=== PATIENT | female | born 1965 | race Caucasian/White ===

== ENCOUNTER 2016-08-19 14:02 | Emergency (ER) | payer SELFPAY ==
[2016-08-19 14:09] VITALS: BP 143/67; BMI 39.2
[2016-08-19] MEDS ORDERED: NS 1000 ML 1,000 ML IV ONE (14:44)
[2016-08-19] MEDS ORDERED: ZOFRAN INJ 4 MG VIAL IVP ONE (14:45)
[2016-08-19] MEDS ORDERED: TORADOL 30 MG VIAL IVP STA (14:46)
--- NOTE | 2016-08-19 14:49 | DR.GENAD ---
HPI - PCP Primary Care Physician: wilbur mays - Complaint/Symptoms Chief Complaint Doctors Comments: Patient states she has been nauseated with epigastric pain that goes to her back with diarrhea for the past seven days. States she has had a low grade fever. States her had a virus earlier but he has gotten over it. She is a patient of Jacki Mays She denies hematuria , nocturia or xavier. States she has been dizzy and weak when she set up or stand. Chief Complaint:: patient stated she had a virus 5 days ago and since then she has been very weak and dizzy and having abd pain. - Nurses notes reviewed Nurses Notes Review: Yes - Source History Provided: Patient - Mode of Arrival Mode of Arrival: Ambulatory - Timing Onset of Chief Complaint: 08/13/16 Came on: Gradually - Duration Duration: Intermittent How lon Duration: Days - Location Location: diffuse abdominal pain - Modifying Factors Worsens:: standing Improves:: nothing PMH - PMH Past Medical History: Yes Past Medical History: GERD Past Surgical History: Yes Surgical History: Cholecystectomy, Hysterectomy - Family History History of Family Medical Conditions: Yes Family Medical History: Diabetes Mellitus, Cancer - Social History Does patient currently use any type of tobacco product: No Have you used tobacco products in the last 12 months: No Type of Tobacco Use: None Does any household member use tobacco: No Alcohol Use: None Do you use any recreational Drugs:: No Lives With: Family Lives Where: Home - infectious screening In the last 2 months have you had wt loss of >10#?: NO Have you had fever, night sweats or hemotysis?: No Have you traveled outside the country in the last 6 months?: No Isolation: Standard ROS - Review of Systems Constitutional: No Symptoms Reported, Malaise, Weakness, Loss of Appetite. negative: See HPI, Chills, Diaphoresis, Fever, Irritable, Fatigue, Other Eyes: No Symptoms Reported. negative: See HPI, Eye Pain, Blurred Vision, Tearing, Discharge, Photophobia, Diplopia, Other ENTM: No Symptoms Reported. negative: See HPI, Ear Pain, Ear Discharge, Pulling on Ears, Hearing Loss, Nose Pain, Nose Discharge, Epistaxis, Nose Congestion, Mouth Pain, Mouth Swelling, Loose Teeth, Drooling, Throat Pain, Throat Swelling, Ear Foreign Body Respiratoy: No Symptoms Reported. negative: See HPI, Productive Cough, Non- Productive Cough, Moist Cough, Dry Cough, Hacking Cough, Barking Cough, Brassy Cough, Orthopnea, Short of Breath, Stridor, Wheezing, Hemoptysis, Other Cardiovascular: No Symptoms Reported. negative: See HPI, Chest Pain, Edema, Palpitations, Syncope, Cyanosis, Skin Mottling, Other Gastrointestinal/Abdominal: No Symptoms Reported, Abdominal Pain, Diarrhea, Nausea, Vomiting Genitourinary: No Symptoms Reported. negative: See HPI, Discharge, Dysuria, Frequency, Hematuria, Pain, Bleeding, Other Neurological: No Symptoms Reported. negative: See HPI, Anxiety, Depressed, Emotional Problems, Headache, Numbness, Paresthesia, Pre-existing Deficit, Seizure, Tingling, Tremors, Weakness, Dizziness, Problems Walking, Speech Problem, Other Musculoskeletal: No Symptoms Reported. negative: See HPI, Back Pain, Gout, Joint Pain, Joint Swelling, Muscle Pain, Muscle Stiffness, Neck Pain, Right, Left, Neck, Chest wall, Rib(s), Back, Shoulder, Arm, Elbow, Forearm, Wrist, Hand , Pelvis, Hip, Leg, Knee, Ankle, Foot, Other Integumentary: No Symptoms Reported. negative: See HPI, Change in Color, Change in Hair/Nails, Dryness, Lesions, Lumps, Rash, Itching, Wound, Bruises, Juandice, Other Hematologic/Lymphatic: No Symptoms Reported. negative: See HPI, Anemia, Blood Clots, Easy Bleeding, Easy Bruising, Swollen Glands, Lymphadenopathy, Other Endocrine: No Symptoms Reported, Decreased Appetite. negative: See HPI, Excessive Sweating, Flushing, Intolerance to Cold, Intolerance to Heat, Increased Hunger, Increased Thirst, Increased Urine, Unexplained Weight Gain, Unexplained Weight Loss, Failure to Thrive, Other Psychiatric: No Symptoms Reported. negative: See HPI, Anxiety, Depression, Hallucinations, Excessive crying, Suicidal, Other PE - Vital Signs Vitals: Temperature 98.7 F Pulse Rate 62 Respiratory Rate 16 Blood Pressure [Right Arm] 145/77 Blood Pressure 143/67 O2 Sat by Pulse Oximetry 99 - General Limitations: No Limitations General Appearance: Alert, In Distress (moderate), Obese - Head Head Exam: Normal Inspection, Atraumatic, Normocephalic - Eyes Eye exam: Normal Appearance, PERRL, EOMI. negative: Scleral Icterus, Conjunctival Injection, Nystagmus, Miosis, Mydrasis, Periorbital Swelling, Periorbital Tenderness, Other - ENT ENT Exam: Normal Exam, Normal Oropharynx, Normal External Ear Exam, Mucous Membranes Moist, TM's Normal Bilaterally External Ear Exam: Normal External Inspection TM/Canal Exam: Bilateral Normal Nose Exam: Normal Nose Exam Mouth Exam: Normal Inspection Throat Exam: Normal Inspection - Neck Neck Exam: Normal Inspection, Full ROM, Trachea Midline. negative: Tenderness, Meningismus, Lymphadenopathy, Thyromegaly, Other - Chest Chest Inspection: Normal Inspection, Symmetric Chest Wall Rise - Respiratory Respiratory Exam: Normal Lung Sounds Bilat Respiratory Exam: Bilateral Clear to Auscultation - Cardiovascular Cardiovascular Exam: Regular Rate, Normal Rhythm, Normal Heart Sounds. negative : Bradycardia, Tachycardia, Irregular Rhythm, Systolic Murmur, Diastolic Murmur , Rubs, Gallop, Clicks, JVD, +S1, +S2, +S3, +S4, Other - Abdominal Exam Abdominal Exam: Normal Inspection, Normal Bowel Sounds, Soft Abdominal Tenderness: Epigastrium, Suprapubic, Moderate - Extremities Extremities Exam: Normal Inspection, Full ROM, Normal Capillary Refill. negative: Tenderness, Edema, Joint Swelling, Calf Tenderness, Other - Back Back Exam: Normal Inspection, Full ROM, Tenderness. negative: (R) CVA Tenderness, (L) CVA Tenderness, Muscle Spasm, Paraspinal Tenderness, Vertebral Tenderness, Rashes, (R) Sciatic Notch Tenderness, (L) Sciatic Notch Tendern, (R ) Straight Leg Raise, (L) Straight Leg Raise, Other - Neurologic Neurological Exam: Alert, Oriented X3, CN II-XII Intact, Normal Gait, Reflexes Normal - Psychiatric Psychiatric Exam: Normal Affect, Normal Mood - Skin Skin Exam: Warm, Dry, Intact, Normal Color ROR - Labs Reviewed Laboratory Results Reviewed?: Yes (All labs and x-ray results reviewed and discussed with patient and spouse) Result Diagrams: 08/19/16 15:40 08/19/16 15:40 Laboratory: WBC 7.1 X10^3/uL (3.6-10.0) 08/19/16 15:40 RBC 4.42 X10^6/uL (3.5-5.4) 08/19/16 15:40 Hgb 13.8 g/dL (12.0-16.0) 08/19/16 15:40 Hct 39.4 % (36.0-47.0) 08/19/16 15:40 MCV 89.3 fL (80.0-100.0) 08/19/16 15:40 MCH 31.1 pg (27.0-34.0) 08/19/16 15:40 MCHC 34.9 g/dL (33.0-35.0) 08/19/16 15:40 RDW 13.2 % (11.6-16.5) 08/19/16 15:40 Plt Count 230 X10^3/uL (150.0-450.0) 08/19/16 15:40 MPV 9.7 fL (7.4-11.0) 08/19/16 15:40 Neut % 60.3 % (42.0-75.0) 08/19/16 15:40 Lymph % 30.9 % (21.0-51.0) 08/19/16 15:40 Cloud % 7.4 % (0.0-13.0) 08/19/16 15:40 Eos % 0.6 % (0.9-2.9) L 08/19/16 15:40 Baso % 0.8 % (0.2-1.0) 08/19/16 15:40 Neut # 4.3 x10^3/uL (2.2-4.8) 08/19/16 15:40 Lymph # 2.2 X10^3/uL (1.3-2.9) 08/19/16 15:40 Cloud # 0.5 x10^3/uL (0.3-0.8) 08/19/16 15:40 Eos # 0.0 x10^3/uL (0.0-0.2) 08/19/16 15:40 Baso # 0.1 X10^3/uL (0.0-0.1) 08/19/16 15:40 Absolute Nucleated RBC 0.0 /100WBC 08/19/16 15:40 Sodium 144 mmol/L (136-145) 08/19/16 15:40 Corrected Sodium 145 mmol/L (136-145) 08/19/16 15:40 Potassium 3.4 mmol/L (3.5-5.1) L 08/19/16 15:40 Chloride 109 mmol/L (98-107) H 08/19/16 15:40 Carbon Dioxide 28.9 mmol/L (21-32) 08/19/16 15:40 BUN 8 mg/dL (7-18) 08/19/16 15:40 Creatinine 0.77 mg/dL (0.55-1.02) 08/19/16 15:40 Est GFR (MDRD) Af Amer > 60 (>60) 08/19/16 15:40 Est GFR (MDRD) Non-Af > 60 (>60) 08/19/16 15:40 Glucose 146 mg/dL (65-99) H 08/19/16 15:40 Calcium 7.7 mg/dL (8.5-10.1) L 08/19/16 15:40 Corrected Calcium 8.3 mg/dL (8.5-10.1) L 08/19/16 15:40 Total Bilirubin 0.40 mg/dL (0.2-1.0) 08/19/16 15:40 AST 38 Units/L (15-37) H 08/19/16 15:40 ALT 71 Units/L (12-78) 08/19/16 15:40 Alkaline Phosphatase 81 Units/L (46-116) 08/19/16 15:40 Total Protein 6.4 g/dL (6.4-8.2) 08/19/16 15:40 Albumin 3.3 g/dL (3.4-5.0) L 08/19/16 15:40 Globulin 3.1 g/dL (2.5-4.5) 08/19/16 15:40 Albumin/Globulin Ratio 1.1 Ratio (1.1-2.1) 08/19/16 15:40 Amylase 31 Units/L (25-115) 08/19/16 15:40 Lipase 152 Units/L (73-393) 08/19/16 15:40 HCG, Qual Negative <10 mIU/mL 08/19/16 15:40 Specimen Type Clean catch urine 08/19/16 16:00 Urine Color Yellow (YELLOW) 08/19/16 16:00 Urine Appearance Slightly hazy (CLEAR) 08/19/16 16:00 Urine pH 6.0 (5.0 - 8.0) 08/19/16 16:00 Ur Specific [place] 1.020 (1.000-1.030) 08/19/16 16:00 Urine Protein 1+ (NEGATIVE) 08/19/16 16:00 Urine Glucose (UA) 1+ (NEGATIVE) 08/19/16 16:00 Urine Ketones Negative (NEGATIVE) 08/19/16 16:00 Urine Occult Blood 2+ (NEGATIVE) 08/19/16 16:00 Urine Nitrite Negative (NEGATIVE) 08/19/16 16:00 Urine Bilirubin Negative (NEGATIVE) 08/19/16 16:00 Urine Urobilinogen Normal (NORMAL) 08/19/16 16:00 Ur Leukocyte Esterase 2+ (NEGATIVE) 08/19/16 16:00 Urine RBC 3-8 /HPF (NEGATIVE) 08/19/16 16:00 Urine WBC 6-10 /HPF (NEGATIVE) 08/19/16 16:00 Ur Squamous Epith Cells Many /HPF (NEGATIVE) 08/19/16 16:00 Urine Bacteria Trace /HPF (NEGATIVE) 08/19/16 16:00 Urine Mucus Few /HPF (NEGATIVE) 08/19/16 16:00 Ur Culture Indicated? Yes/culture set up 08/19/16 16:00 H. pylori IgG Antibody Positive (NEGATIVE) A 08/19/16 15:40 - Diagnosis Discharge Problem: Gastroenteritis, Helicobacter positive gastritis, Urinary tract infection, Hyperglycemia, Hypokalemia - Discharge Plan Disposition: HOME, SELF-CARE Condition: Stable Prescriptions: Lansoprazole/Amoxiciln/Clarith [PrevPac 14-day pack] 1 dose PO BID #1 pkg Ondansetron [Zofran Odt] 4 mg PO Q8H PRN #12 tab PRN Reason: Nausea/Vomiting - Follow ups/Referrals Follow ups/Referrals: AVA MAYS [Primary Care Provider] - 3 days - Instructions Instructions: Viral Gastroenteritis, Adult, Gastritis, Adult, Helicobacter Pylori Antibodies Test, Urinary Tract Infection, Hypokalemia
[2016-08-19] MEDS ORDERED: NS 1000 ML 1,000 ML ONE (14:51)
[2016-08-19] MEDS ORDERED: ZOFRAN INJ 4 MG VIAL ONE (14:51)
[2016-08-19] MEDS ORDERED: TORADOL 30 MG VIAL ONE (14:52)
[2016-08-19 15:06] LABS: BASOPHILS # (AUTO) 0.1 X10^3/uL (0.0-0.1); BASOPHILS % (AUTO) 0.8 % (0.2-1.0); EOSINOPHILS % (AUTO) 0.6 % (0.9-2.9); HEMATOCRIT 39.4 % (36.0-47.0); HEMOGLOBIN 13.8 g/dL (12.0-16.0); LYMPHOCYTES # (AUTO) 2.2 X10^3/uL (1.3-2.9); LYMPHOCYTES % (AUTO) 30.9 % (21.0-51.0); MEAN CORPUSCULAR HEMOGLOBIN 31.1 pg (27.0-34.0); MEAN CORPUSCULAR HGB CONC 34.9 g/dL (33.0-35.0); MEAN CORPUSCULAR VOLUME 89.3 fL (80.0-100.0); MEAN PLATELET VOLUME 9.7 fL (7.4-11.0); MONOCYTES # (AUTO) 0.5 x10^3/uL (0.3-0.8); MONOCYTES % (AUTO) 7.4 % (0.0-13.0); NEUTROPHILS # (AUTO) 4.3 x10^3/uL (2.2-4.8); NEUTROPHILS % (AUTO) 60.3 % (42.0-75.0); PLATELET COUNT 230 X10^3/uL (150.0-450.0); RED BLOOD COUNT 4.42 X10^6/uL (3.5-5.4); RED CELL DISTRIBUTION WIDTH 13.2 % (11.6-16.5); WHITE BLOOD COUNT 7.1 X10^3/uL (3.6-10.0)
[2016-08-19 16:08] LABS: ALANINE AMINOTRANSFERASE 71 Units/L (12-78); ALBUMIN 3.3 g/dL (3.4-5.0); ALKALINE PHOSPHATASE 81 Units/L (46-116); AMYLASE 31 Units/L (25-115); ASPARTATE AMINO TRANSFERASE 38 Units/L (15-37); BLOOD UREA NITROGEN 8 mg/dL (7-18); CALCIUM 7.7 mg/dL (8.5-10.1); CARBON DIOXIDE 28.9 mmol/L (21-32); CHLORIDE 109 mmol/L (98-107); COR CA(FOR HYPOALB) 8.3 mg/dL (8.5-10.1); COR NA(FOR HYPERGLY) 145 mmol/L (136-145); CREATININE 0.77 mg/dL (0.55-1.02); GLUCOSE 146 mg/dL (65-99); LIPASE 152 Units/L (73-393); SODIUM 144 mmol/L (136-145); TOTAL PROTEIN 6.4 g/dL (6.4-8.2); eGFR BLACK RACES > 60 (>60); eGFR NON BLACK RACES > 60 (>60)
[2016-08-19 16:12] LABS: BILIRUBIN,URINE NEGATIVE (NEGATIVE); BLOOD/HEMOGLOBIN,URINE 2+ (NEGATIVE); GLUCOSE, URINE 1+ (NEGATIVE); KETONES,URINE NEGATIVE (NEGATIVE); LEUKOCYTE ESTERASE ,URINE 2+ (NEGATIVE); NITRITES,URINE NEGATIVE (NEGATIVE); PROTEIN,URINE 1+ (NEGATIVE); UROBILINOGEN,URINE NORMAL (NORMAL)
[2016-08-19 16:30] LABS: APPEARANCE,URINE SLIGHTLY HAZY (CLEAR); BACTERIA,URINE TRACE /HPF (NEGATIVE); COLOR,URINE YELLOW (YELLOW); MUCUS,URINE FEW /HPF (NEGATIVE); SQUAMOUS EPITHELIAL CELL,UR MANY /HPF (NEGATIVE)
[2016-08-19 16:32] LABS: SERUM PREGNANCY TEST, QUAL NEGATIVE <10 mIU/mL
== END 2016-08-19 17:03 | disposition home or self-care (01) ==
LOC: ER 14:02
DX: K52.89 Other specified noninfective gastroenteritis and colitis (principal); N39.0 Urinary tract infection, site not specified; R73.9 Hyperglycemia, unspecified; E87.6 Hypokalemia; B95.1 Streptococcus, group B, as the cause of diseases classified elsewhere
CPT/HCPCS: 36415; 80053; 81001; 82150; 83690; 84703; 85025; 86677; 87086; 87088; 87186; 96365; 96367; 96374; 96375; 99283; A4216; A4222; J1885; J2405

== ENCOUNTER 2016-08-24 20:28 | Emergency (ER) | payer SELFPAY ==
[2016-08-24 20:36] VITALS: BP 189/96; BMI 36.8
--- NOTE | 2016-08-24 21:04 | DR.GENAD ---
HPI - PCP Primary Care Physician: TATIANA SOUSA - Complaint/Symptoms Chief Complaint Doctors Comments: nausea and vomiting after tabing prepack for five days. Chief Complaint:: ABD PAIN NVD BHATIA, DIZZINESS, WAS SEEN HERE SAT DX WITH H PYLORI Self Treatment fo Chief Complaint: PREV RAJENDRA ZOFRAN - Nurses notes reviewed Nurses Notes Review: Yes - Source History Provided: Patient - Mode of Arrival Mode of Arrival: Ambulatory - Timing Onset of Chief Complaint: 08/12/16 Came on: Gradually - Duration Duration: Intermittent Duration: Days - Severity Severity: Mild, Moderate PMH - PMH Past Medical History: Yes Past Medical History: Diabetes, GERD Past Surgical History: Yes Surgical History: Cholecystectomy, Hysterectomy - Family History History of Family Medical Conditions: Yes Family Medical History: Diabetes Mellitus, Cancer - Social History Does patient currently use any type of tobacco product: No Have you used tobacco products in the last 12 months: No Type of Tobacco Use: None Does any household member use tobacco: No Alcohol Use: None Do you use any recreational Drugs:: No Lives With: Family Lives Where: Home - infectious screening In the last 2 months have you had wt loss of >10#?: NO Have you had fever, night sweats or hemotysis?: No Have you traveled outside the country in the last 6 months?: No Isolation: Standard ROS - Review of Systems Cardiovascular: No Symptoms Reported Gastrointestinal/Abdominal: Nausea, Vomiting Genitourinary: No Symptoms Reported Neurological: No Symptoms Reported Musculoskeletal: No Symptoms Reported Hematologic/Lymphatic: No Symptoms Reported Endocrine: No Symptoms Reported PE - Vital Signs Vitals: Temperature 98.3 F Pulse Rate 60 Respiratory Rate 18 Blood Pressure [Right Arm] 145/77 Blood Pressure 189/96 O2 Sat by Pulse Oximetry 97 - General Limitations: No Limitations General Appearance: In No Apparent Distress - Head Head Exam: Normal Inspection - Eyes Eye exam: Normal Appearance - Neck Neck Exam: Normal Inspection, Full ROM, Trachea Midline - Chest Chest Inspection: Normal Inspection, Symmetric Chest Wall Rise - Respiratory Respiratory Exam: Normal Lung Sounds Bilat Respiratory Exam: Bilateral Clear to Auscultation - Cardiovascular Cardiovascular Exam: Regular Rate, Normal Rhythm, Normal Heart Sounds - Abdominal Exam Abdominal Exam: Normal Bowel Sounds, Soft, Tenderness, Hyperactive Bowel Sounds Abdominal Tenderness: Epigastrium - Extremities Extremities Exam: Normal Inspection - Back Back Exam: Normal Inspection - Neurologic Neurological Exam: Alert, Oriented X3, CN II-XII Intact - Psychiatric Psychiatric Exam: Normal Affect, Normal Mood - Diagnosis Discharge Problem: Drug side effects, Nausea & vomiting - Discharge Plan Condition: Stable - Follow ups/Referrals Follow ups/Referrals: AVA SOUSA [Primary Care Provider] - 3 days - Instructions
[2016-08-24] MEDS ORDERED: REGLAN INJ 10 MG VIAL ONE (21:09)
[2016-08-24] MEDS ORDERED: BENADRYL INJ 50 MG VIAL ONE (21:09)
[2016-08-24] MEDS ORDERED: BENADRYL INJ 50 MG VIAL IVP ONE (21:09)
[2016-08-24] MEDS ORDERED: NS 500 ML IV 500 ML IV ONE ×2 (21:09→21:25)
[2016-08-24] MEDS ORDERED: REGLAN INJ 10 MG VIAL IVP ONE (21:10)
[2016-08-24] MEDS ORDERED: CARAFATE SUSP 1 GM/10 ML PO ONE (21:17)
== END 2016-08-24 22:18 | disposition home or self-care (01) ==
LOC: ER 20:40
DX: R11.2 Nausea with vomiting, unspecified (principal); T50.995A Adverse effect of other drugs, medicaments and biological substances, initial encounter
CPT/HCPCS: 96365; 96374; 96375; 99283; A4222; J1200; J2765

== ENCOUNTER 2017-05-26 16:01 | Emergency (ER) | payer SELFPAY ==
[2017-05-26 16:07] VITALS: BMI 33.6
[2017-05-26] MEDS ORDERED: ASPIRIN PO ONE (18:53)
[2017-05-26] MEDS ORDERED: TORADOL 30 MG VIAL IVP STA (18:54)
[2017-05-26] MEDS ORDERED: ZOFRAN INJ 4 MG VIAL IVP ONE (18:54)
--- NOTE | 2017-05-26 18:58 | DR.GENAD ---
HPI - PCP Primary Care Physician: MERRY - Complaint/Symptoms Chief Complaint Doctors Comments: Patient states her glucose was up to 589 last night and she got it down to 200 range but she has been having a diffuse headache with xiphoid pain like pressure or a weight in the center of her chest for the past 6-7 hours with nausea but no vomiting, fever, chills, cold or cough. States she has had a cath before that was normal years ago. She denies tobacoo or alcohol usage. states she is a patient of Jacki Johnston. She denies any recent trauma. Chief Complaint:: " I HAVE BEEN HAVING A HEADACHE, MY BP IS HGH AND MY BLOOD SUGAR IS HIGH" Self Treatment fo Chief Complaint: NONE - Nurses notes reviewed Nurses Notes Review: Yes - Source History Provided: Patient - Mode of Arrival Mode of Arrival: Ambulatory - Timing Onset of Chief Complaint: 05/25/17 Came on: Gradually - Duration Duration: Constant How lon Duration: Hours - Location Location: diffuse headache with xiphoid chest pain - Severity Severity: Severe - Modifying Factors Worsens:: nothing Improves:: nothing PMH - PMH Past Medical History: Yes Past Medical History: Diabetes, Migraines, GERD, Hypertension Past Surgical History: Yes Surgical History: Cholecystectomy, Hysterectomy - Family History History of Family Medical Conditions: Yes Family Medical History: Diabetes Mellitus, Hypertension - Social History Does patient currently use any type of tobacco product: No Have you used tobacco products in the last 12 months: No Type of Tobacco Use: None Does any household member use tobacco: No Alcohol Use: None Do you use any recreational Drugs:: No Lives With: Family Lives Where: Home - infectious screening In the last 2 months have you had wt loss of >10#?: NO Have you had fever, night sweats or hemotysis?: No Have you traveled outside the country in the last 6 months?: No Isolation: Standard ROS - Review of Systems Constitutional: No Symptoms Reported Eyes: No Symptoms Reported, Blurred Vision ENTM: No Symptoms Reported Respiratoy: No Symptoms Reported Cardiovascular: No Symptoms Reported, Chest Pain Gastrointestinal/Abdominal: No Symptoms Reported, Nausea. negative: See HPI, Abdominal Pain, Constipation, Diarrhea, Vomiting, Food Intolerance, Other Genitourinary: No Symptoms Reported. negative: See HPI, Discharge, Dysuria, Frequency, Hematuria, Pain, Bleeding, Other Neurological: No Symptoms Reported, Headache, Paresthesia Musculoskeletal: No Symptoms Reported Integumentary: No Symptoms Reported. negative: See HPI, Change in Color, Change in Hair/Nails, Dryness, Lesions, Lumps, Rash, Itching, Wound, Bruises, Juandice, Other Hematologic/Lymphatic: No Symptoms Reported Endocrine: No Symptoms Reported Psychiatric: No Symptoms Reported PE - Vital Signs Vitals: Temperature 98.1 F Pulse Rate [Left Brachial] 62 Pulse Rate 68 Respiratory Rate 18 Blood Pressure [Right Arm] 149/72 Blood Pressure 142/73 O2 Sat by Pulse Oximetry 97 - General Limitations: No Limitations General Appearance: Alert, In Distress (moderate) - Head Head Exam: Normal Inspection, Atraumatic, Normocephalic - Eyes Eye exam: Normal Appearance, PERRL, EOMI. negative: Scleral Icterus, Conjunctival Injection, Nystagmus, Miosis, Mydrasis, Periorbital Swelling, Periorbital Tenderness, Other - ENT ENT Exam: Normal Exam, Normal Oropharynx, Normal External Ear Exam, Mucous Membranes Moist, TM's Normal Bilaterally External Ear Exam: Normal External Inspection TM/Canal Exam: Bilateral Normal Nose Exam: Normal Nose Exam Mouth Exam: Normal Inspection Throat Exam: Normal Inspection - Neck Neck Exam: Normal Inspection, Full ROM, Trachea Midline. negative: Tenderness, Meningismus, Lymphadenopathy, Thyromegaly, Other - Chest Chest Inspection: Normal Inspection, Symmetric Chest Wall Rise - Respiratory Respiratory Exam: Normal Lung Sounds Bilat Respiratory Exam: Bilateral Clear to Auscultation - Cardiovascular Cardiovascular Exam: Regular Rate, Normal Rhythm, Normal Heart Sounds. negative : Bradycardia, Tachycardia, Irregular Rhythm, Systolic Murmur, Diastolic Murmur , Rubs, Gallop, Clicks, JVD, +S1, +S2, +S3, +S4, Other - Abdominal Exam Abdominal Exam: Normal Inspection, Normal Bowel Sounds, Soft Abdominal Tenderness: negative: RUQ, RLQ, LUQ, LLQ, Epigastrium, Suprapubic, Diffuse, Mild, Moderate, Severe, Other - Extremities Extremities Exam: Normal Inspection, Full ROM, Normal Capillary Refill. negative: Tenderness, Edema, Joint Swelling, Calf Tenderness, Other - Back Back Exam: Normal Inspection, Full ROM - Neurologic Neurological Exam: Alert, Oriented X3, CN II-XII Intact, Normal Gait, Reflexes Normal - Psychiatric Psychiatric Exam: Normal Affect, Normal Mood - Skin Skin Exam: Warm, Dry, Intact, Normal Color ROR - Labs Reviewed Laboratory Results Reviewed?: Yes (All labs and x-ray results reviewed and discussed with patient) Result Diagrams: 05/26/17 19:15 05/26/17 19:15 Laboratory: WBC 8.4 X10^3/uL (3.6-10.0) 05/26/17 19:15 RBC 5.15 X10^6/uL (3.5-5.4) 05/26/17 19:15 Hgb 16.1 g/dL (12.0-16.0) H 05/26/17 19:15 Hct 46.0 % (36.0-47.0) 05/26/17 19:15 MCV 89.3 fL (80.0-100.0) 05/26/17 19:15 MCH 31.3 pg (27.0-34.0) 05/26/17 19:15 MCHC 35.1 g/dL (33.0-35.0) H 05/26/17 19:15 RDW 12.6 % (11.6-16.5) 05/26/17 19:15 Plt Count 230 X10^3/uL (150.0-450.0) 05/26/17 19:15 MPV 9.5 fL (7.4-11.0) 05/26/17 19:15 Neut % (Auto) 76.4 % (42.0-75.0) H 05/26/17 19:15 Lymph % (Auto) 19.2 % (21.0-51.0) L 05/26/17 19:15 [place] % (Auto) 3.6 % (0.0-13.0) 05/26/17 19:15 Eos % (Auto) 0.1 % (0.9-2.9) L 05/26/17 19:15 Baso % (Auto) 0.7 % (0.2-1.0) 05/26/17 19:15 Neut # (Auto) 6.4 x10^3/uL (2.2-4.8) H 05/26/17 19:15 Lymph # (Auto) 1.6 X10^3/uL (1.3-2.9) 05/26/17 19:15 [place] # (Auto) 0.3 x10^3/uL (0.3-0.8) 05/26/17 19:15 Eos # (Auto) 0.0 x10^3/uL (0.0-0.2) 05/26/17 19:15 Baso # (Auto) 0.1 X10^3/uL (0.0-0.1) 05/26/17 19:15 Absolute Nucleated RBC 0.0 /100WBC 05/26/17 19:15 INR Target Range - 05/26/17 19:15 INR 1.04 (0.8-1.3) 05/26/17 19:15 APTT 22.4 SECONDS (22.9-36.5) L 05/26/17 19:15 PTT Comment - 05/26/17 19:15 Sodium 139 mmol/L (136-145) 05/26/17 19:15 Corrected Sodium 143 mmol/L (136-145) 05/26/17 19:15 Potassium 3.8 mmol/L (3.5-5.1) 05/26/17 19:15 Chloride 102 mmol/L (98-107) 05/26/17 19:15 Carbon Dioxide 27.6 mmol/L (21-32) 05/26/17 19:15 BUN 9 mg/dL (7-18) 05/26/17 19:15 Creatinine 0.79 mg/dL (0.55-1.02) 05/26/17 19:15 Est GFR (MDRD) Af Amer > 60 (>60) 05/26/17 19:15 Est GFR (MDRD) Non-Af > 60 (>60) 05/26/17 19:15 Glucose 254 mg/dL (65-99) H 05/26/17 19:15 Calcium 9.0 mg/dL (8.5-10.1) 05/26/17 19:15 Corrected Calcium TNP 05/26/17 19:15 Magnesium 2.1 mg/dL (1.7-2.9) 05/26/17 19:15 Total Bilirubin 0.90 mg/dL (0.2-1.0) 05/26/17 19:15 AST 58 Units/L (15-37) H 05/26/17 19:15 ALT 80 Units/L (12-78) H 05/26/17 19:15 Alkaline Phosphatase 115 Units/L (46-116) 05/26/17 19:15 Creatine Kinase 101 Units/L (26-192) 05/26/17 19:15 CK-MB (CK-2) < 1.0 ng/mL (0-4.0) 05/26/17 19:15 CK/CKMB % Calc 1.0 % (<4) 05/26/17 19:15 Troponin I < 0.02 ng/mL (0-1.5) 05/26/17 19:15 Total Protein 8.1 g/dL (6.4-8.2) 05/26/17 19:15 Albumin 4.2 g/dL (3.4-5.0) 05/26/17 19:15 Globulin 3.9 g/dL (2.5-4.5) 05/26/17 19:15 Albumin/Globulin Ratio 1.1 Ratio (1.1-2.1) 05/26/17 19:15 - XRAY XRAY Interpreted by: Radiologist (CT head: No acute intracranial process. Polypoid mlucosal thickening macillary sinuses) - EKG Rate: 63 [place]: Normal Rhythm: NSR Block: None Hypertrophy: None ST: Nonsp - Diagnosis Discharge Problem: Diabetes mellitus Headache Qualifiers: Headache type: unspecified Headache chronicity pattern: acute headache Chest pain Qualifiers: Chest pain type: unspecified Qualified Code(s): R07.9 - Chest pain, unspecified Maxillary sinusitis Qualifiers: Chronicity: acute - Discharge Plan Disposition: HOME, SELF-CARE Condition: Stable Prescriptions: Amoxicillin/Potassium Clav [Augmentin 875-125 Tablet] 1 tab PO Q12H #20 tab Fluticasone Nasal [place] [FLONASE NASAL SPRAY *] 2 sprays ENOSTRIL DAILY #1 each Loratadine [Claritin] 10 mg PO DAILY #30 tab - Follow ups/Referrals Follow ups/Referrals: AVA JOHNSTON [Primary Care Provider] - 3 days - Instructions Instructions: Sinusitis, Adult, [id number], Nonspecific Chest Pain, Sinus Headache, Type 2 Diabetes Mellitus, Diagnosis, Adult
[2017-05-26] MEDS ORDERED: ZOFRAN INJ 4 MG VIAL ONE (18:59)
[2017-05-26] MEDS ORDERED: ASPIRIN ONE (18:59)
[2017-05-26] MEDS ORDERED: TORADOL 30 MG VIAL ONE (18:59)
--- NOTE | 2017-05-26 19:29 | CT ---
CT HEAD WITHOUT CONTRAST CLINICAL HISTORY: 52-year-old female with headache COMPARISON: None. TECHNIQUE: Multiple axial CT images were obtained from the skull base to the cranial vertex without t he administration of contrast. FINDINGS: No evidence of abnormal intra- or extra axial fluid collections, midline shift, or mass eff ect. [place] white differentiation is maintained. The ventricular system is normal in size and morpholog y. The basal cisterns are normal in appearance. Polypoid mucosal thickening bilateral maxillary sinuses. The remaining paranasal sinuses, mastoid air cells, and tympanic cavities are clear. IMPRESSION: 1. No acute intracranial process. 2. Polypoid mucosal thickening maxillary sinuses, correlate clinically. Reported By:
[2017-05-26 19:34] LABS: BASOPHILS # (AUTO) 0.1 X10^3/uL (0.0-0.1); BASOPHILS % (AUTO) 0.7 % (0.2-1.0); EOSINOPHILS % (AUTO) 0.1 % (0.9-2.9); HEMOGLOBIN 16.1 g/dL (12.0-16.0); LYMPHOCYTES # (AUTO) 1.6 X10^3/uL (1.3-2.9); LYMPHOCYTES % (AUTO) 19.2 % (21.0-51.0); MEAN CORPUSCULAR HEMOGLOBIN 31.3 pg (27.0-34.0); MEAN CORPUSCULAR HGB CONC 35.1 g/dL (33.0-35.0); MEAN CORPUSCULAR VOLUME 89.3 fL (80.0-100.0); MEAN PLATELET VOLUME 9.5 fL (7.4-11.0); MONOCYTES # (AUTO) 0.3 x10^3/uL (0.3-0.8); MONOCYTES % (AUTO) 3.6 % (0.0-13.0); NEUTROPHILS # (AUTO) 6.4 x10^3/uL (2.2-4.8); NEUTROPHILS % (AUTO) 76.4 % (42.0-75.0); PLATELET COUNT 230 X10^3/uL (150.0-450.0); RED BLOOD COUNT 5.15 X10^6/uL (3.5-5.4); RED CELL DISTRIBUTION WIDTH 12.6 % (11.6-16.5); WHITE BLOOD COUNT 8.4 X10^3/uL (3.6-10.0)
--- NOTE | 2017-05-26 19:37 | RAD ---
HISTORY: 52-year-old female with headache. Study: Frontal view of the chest. Comparison: Chest radiograph 03/21/2013 Findings: The trachea is midline. The cardiac silhouette is stably enlarged. The lungs are clear without foca l consolidation, effusion or pneumothorax. Soft tissues are unremarkable. Osseous structures are unr emarkable. IMPRESSION: 1. No acute cardiopulmonary disease. Reported By:
[2017-05-26 19:41] LABS: BLOOD UREA NITROGEN 9 mg/dL (7-18); CARBON DIOXIDE 27.6 mmol/L (21-32); CHLORIDE 102 mmol/L (98-107); COR NA(FOR HYPERGLY) 143 mmol/L (136-145); CREATININE 0.79 mg/dL (0.55-1.02); SODIUM 139 mmol/L (136-145); TROPONIN I < 0.02 ng/mL (0-1.5); eGFR BLACK RACES > 60 (>60); eGFR NON BLACK RACES > 60 (>60)
[2017-05-26 19:45] LABS: ALANINE AMINOTRANSFERASE 80 Units/L (12-78); ALBUMIN 4.2 g/dL (3.4-5.0); ALKALINE PHOSPHATASE 115 Units/L (46-116); ASPARTATE AMINO TRANSFERASE 58 Units/L (15-37); CREATINE KINASE 101 Units/L (26-192); CREATINE KINASE MB < 1.0 ng/mL (0-4.0); MAGNESIUM 2.1 mg/dL (1.7-2.9); TOTAL PROTEIN 8.1 g/dL (6.4-8.2)
[2017-05-26] MEDS ORDERED: ROCEPHIN 1 GM IV PREMIX 1 GM/50 ML IV.SOLN. IV ONE ×2 (20:29→20:32)
[2017-05-26 20:37] VITALS: BP 148/67
== END 2017-05-26 20:45 | disposition home or self-care (01) ==
LOC: ER 16:10
DX: R07.89 Other chest pain (principal); E11.9 Type 2 diabetes mellitus without complications; R51 Headache; J01.80 Other acute sinusitis; R94.31 Abnormal electrocardiogram [ECG] [EKG]
CPT/HCPCS: 36415; 70450; 71045; 80053; 82550; 82553; 83735; 84484; 85025; 85610; 85730; 93005; 93010; 96365; 96374; 96375; 99283; A4222; J0696; J1885; J2405

== ENCOUNTER 2019-08-09 15:04 | Inpatient (IN) ==
--- NOTE | 2019-08-09 16:04 | RAD ---
HISTORYChills and feverSTUDYAP [id number] heart size. Suggestion of mild diffuse bibasal interstitial infiltrates not definitely seen on prior exam. No segmental or lobar consolidation, hilar adenopathy or pleural fluid.IMPRESSIONSuspect appearance for ill-defined bibasal interstitial infiltrates, right greater than left which may represent an acute inflammatory process. Correlate clinically with follow-up.Electronically signed by: PAPA ANDRES (Aug 09, 2019 16:03:18)
[2019-08-09 16:08] LABS: ABG BASE EXCESS 5.6 mmol/L (-2.0-2.0)
[2019-08-09 16:09] LABS: ABG HCO3 31.1 mmol/L (22-26)
[2019-08-09 16:26] LABS: BASOPHILS % (AUTO) 0.2 % (0.2-1.0); HEMATOCRIT 45.5 % (36.0-47.0); HEMOGLOBIN 15.6 g/dL (12.0-16.0); LYMPHOCYTES % (AUTO) 17.9 % (21.0-51.0); MEAN CORPUSCULAR HEMOGLOBIN 30.8 pg (27.0-34.0); MEAN CORPUSCULAR HGB CONC 34.2 g/dL (33.0-35.0); MEAN CORPUSCULAR VOLUME 90.2 fL (80.0-100.0); MEAN PLATELET VOLUME 8.9 fL (7.4-11.0); MONOCYTES # (AUTO) 0.4 x10^3/uL (0.3-0.8); NEUTROPHILS % (AUTO) 74.9 % (42.0-75.0); PLATELET COUNT 184 X10^3/uL (150.0-450.0); RED BLOOD COUNT 5.05 X10^6/uL (3.5-5.4); RED CELL DISTRIBUTION WIDTH 12.6 % (11.6-16.5); WHITE BLOOD COUNT 5.3 X10^3/uL (3.6-10.0)
--- NOTE | 2019-08-09 16:52 | DR.SOBA ---
HPI Time Seen Time Seen by Provider: 08/09/19 15:26 Primary Care Physician Primary Care Physician: PRAMOD DE JESUS HPI Comment HPI Comment: Cough x 1 week, children cohabiting Covid + had Covid test done yesterday awaiting result. C/O worsening cough and SHOB and subjective fever/chills as well as home pulse ox in the 80s. Denies chest pain pressure or palpitations, n/v/d, or any other symptoms. Saw MD 2 days ago, currently on Azithro/Methylprednisolone taper day 2. Complaints Chief Complaint:: PT C/O > SOB, FEVER CHILLS AND PT'S SON AND DAUGHTER HAS BEEN TESTED COVID AND TESTED POSITIVE, PT WAS SEEN BY PCP 08/08/2019. PT PAST PUT ON STEROIDS AND Z-MAX ..PT HAS HOME PULSE OX, AND SATS IN THE 80'S ..BR COVID-19 Coronavirus risk:travel/contact w/high risk person: Yes Has patient experienced Coronavirus symptoms: Yes Coronavirus symptoms experienced: Fever, Coughing and Shortness of Breath Source History Provided: Patient Mode of Arrival Mode of Arrival: Ambulatory Timing Onset of Chief Complaint: 08/08/19 PMH PMH Past Medical History: Yes Past Medical History: Diabetes, Migraines, GERD and Hypertension Past Surgical History: Yes Surgical History: Cholecystectomy and Hysterectomy Family History History of Family Medical Conditions: Yes Family Medical History: Diabetes Mellitus and Hypertension Social History Does patient currently use any type of tobacco product: No Have you used tobacco products in the last 12 months: No Type of Tobacco Use: None Does any household member use tobacco: No Alcohol Use: None Do you use any recreational Drugs:: No Lives With: Family Lives Where: Home Travel Risk Coronavirus risk:travel/contact w/high risk person: Yes Has patient experienced Coronavirus symptoms: Yes Coronavirus symptoms experienced: Fever, Coughing and Shortness of Breath Infectious screening In the last 2 months have you had wt loss of >10#?: NO Have you had fever, night sweats or hemotysis?: No Have you traveled outside the country in the last 6 months?: No Isolation: Droplet ROS Review of Systems Constitutional: See HPI Eyes: No Symptoms Reported ENTM: No Symptoms Reported Respiratoy: See HPI Cardiovascular: No Symptoms Reported Gastrointestinal/Abdominal: No Symptoms Reported Genitourinary: No Symptoms Reported Neurological: No Symptoms Reported Musculoskeletal: No Symptoms Reported Integumentary: No Symptoms Reported Hematologic/Lymphatic: No Symptoms Reported Endocrine: No Symptoms Reported Psychiatric: No Symptoms Reported All Other Systems: Reviewed and Negative PE Vital Signs Vitals: Temperature 96.3 F Pulse Rate 63 Respiratory Rate 20 Blood Pressure [Right Arm] 148/67 Blood Pressure 121/50 O2 Sat by Pulse Oximetry 99 General Limitations: No Limitations General Appearance: Alert and In No Apparent Distress Head Head Exam: Normal Inspection Eyes Eye exam: Normal Appearance ENT ENT Exam: Normal Exam Neck Neck Exam: Normal Inspection Chest Chest Inspection: Normal Inspection Respiratory Respiratory Exam: Normal Lung Sounds Bilat, Accessory Muscle Use, Respiratory Distress and Other (Breathes in the middle of sentences) Respiratory Exam: Bilateral: Clear to Auscultation Cardiovascular Cardiovascular Exam: Regular Rate and Normal Rhythm Abdominal Exam Abdominal Exam: Normal Inspection, Normal Bowel Sounds and Soft Extremities Extremities Exam: Normal Inspection Back Back Exam: Normal Inspection Neurologic Neurological Exam: Alert and Oriented X3 Psychiatric Psychiatric Exam: Normal Affect and Normal Mood Skin Skin Exam: Warm, Dry, Intact and Normal Color COURSE Treatment Treatment: VBG drawn (profound hypoxia on VBG in spite of SpO2 92% on security monitor noted), and patient placed on 4L/min NC. Pt reports subjective relief of SHOB, and is able to complete sentences on NC. Awaiting lab /rads results Covid 19 positive + b/l infiltrates on CXR, second ABG shows appropriate oxygenation at 4L NC, hypokalemia, hyperglycemia (pt is on methylprednisone, day 2, prescribed by her primary for suspected Covid). Discussed case with Dr. Alva, and he agreed to admit and follow. Will not continue methylprednisone while inpatient, will yield the timing and dosage of corticosteroids to Dr. Alva. Reevaluation 1st: Improved ROR Labs Reviewed Laboratory Results Reviewed?: Yes Result Diagrams: 08/09/19 16:05 08/09/19 16:00 Laboratory: WBC 5.3 X10^3/uL (3.6-10.0) 08/09/19 16:05 RBC 5.05 X10^6/uL (3.5-5.4) 08/09/19 16:05 Hgb 15.6 g/dL (12.0-16.0) 08/09/19 16:05 Hct 45.5 % (36.0-47.0) 08/09/19 16:05 MCV 90.2 fL (80.0-100.0) 08/09/19 16:05 MCH 30.8 pg (27.0-34.0) 08/09/19 16:05 MCHC 34.2 g/dL (33.0-35.0) 08/09/19 16:05 RDW 12.6 % (11.6-16.5) 08/09/19 16:05 Plt Count 184 X10^3/uL (150.0-450.0) 08/09/19 16:05 MPV 8.9 fL (7.4-11.0) 08/09/19 16:05 Neut % (Auto) 74.9 % (42.0-75.0) 08/09/19 16:05 Lymph % (Auto) 17.9 % (21.0-51.0) L 08/09/19 16:05 [place] % (Auto) 7.0 % (0.0-13.0) 08/09/19 16:05 Eos % (Auto) 0.0 % (0.9-2.9) L 08/09/19 16:05 Baso % (Auto) 0.2 % (0.2-1.0) 08/09/19 16:05 Neut # (Auto) 4.0 x10^3/uL (2.2-4.8) 08/09/19 16:05 Lymph # (Auto) 1.0 X10^3/uL (1.3-2.9) L 08/09/19 16:05 [place] # (Auto) 0.4 x10^3/uL (0.3-0.8) 08/09/19 16:05 Eos # (Auto) 0.0 x10^3/uL (0.0-0.2) 08/09/19 16:05 Baso # (Auto) 0.0 X10^3/uL (0.0-0.1) 08/09/19 16:05 Absolute Nucleated RBC 0.0 /100WBC 08/09/19 16:05 Sample Site Lb 08/09/19 18:48 ABG pH 7.460 (7.35-7.45) H 08/09/19 18:48 ABG pCO2 38.0 mmHg (35.0-45.0) 08/09/19 18:48 ABG pO2 94.0 mmHg (80.0-100.0) 08/09/19 18:48 ABG HCO3 27.0 mmol/L (22-26) H 08/09/19 18:48 ABG O2 Saturation 98.0 % (90-100) 08/09/19 18:48 ABG Base Excess 3.1 mmol/L (-2.0-2.0) H 08/09/19 18:48 Dion Test Na 08/09/19 18:48 A-a Gradient 58.0 mmHg 08/09/19 18:48 FiO2 28.0 08/09/19 18:48 Blood Gas Comments [facility] well cb 08/09/19 18:48 Sodium 135 mmol/L (136-145) L 08/09/19 16:00 Corrected Sodium 142 mmol/L (136-145) 08/09/19 16:00 Potassium 3.0 mmol/L (3.5-5.1) L* 08/09/19 16:00 Chloride 98 mmol/L (98-107) 08/09/19 16:00 Carbon Dioxide 28.8 mmol/L (21-32) 08/09/19 16:00 BUN 10 mg/dL (7-18) 08/09/19 16:00 Creatinine 0.84 mg/dL (0.55-1.02) 08/09/19 16:00 Est GFR (MDRD) Af Amer > 60 (>60) 08/09/19 16:00 Est GFR (MDRD) Non-Af > 60 (>60) 08/09/19 16:00 Glucose 372 mg/dL (65-99) H 08/09/19 16:00 Calcium 9.5 mg/dL (8.5-10.1) 08/09/19 16:00 Corrected Calcium TNP 08/09/19 16:00 Magnesium 2.2 mg/dL (1.7-2.9) 08/09/19 16:00 Total Bilirubin 0.40 mg/dL (0.2-1.0) 08/09/19 16:00 AST 29 Units/L (15-37) 08/09/19 16:00 ALT 33 Units/L (12-78) 08/09/19 16:00 Alkaline Phosphatase 100 Units/L (46-116) 08/09/19 16:00 Creatine Kinase 83 Units/L (26-192) 08/09/19 16:00 Creatine Kinase Cancelled 08/09/19 16:00 CK-MB (CK-2) < 1.0 ng/mL (0-4.0) 08/09/19 16:00 CK-MB (CK-2) Cancelled 08/09/19 16:00 CK/CKMB % Calc 1.2 % (<4) 08/09/19 16:00 CK/CKMB % Calc Cancelled 08/09/19 16:00 Troponin I < 0.02 ng/mL (0-1.5) 08/09/19 16:00 Troponin I Cancelled 08/09/19 16:00 B-Natriuretic Peptide 28.3 pg/mL (0-79) 08/09/19 16:00 Total Protein 7.8 g/dL (6.4-8.2) 08/09/19 16:00 Albumin 3.5 g/dL (3.4-5.0) 08/09/19 16:00 Globulin 4.3 g/dL (2.5-4.5) 08/09/19 16:00 Albumin/Globulin Ratio 0.8 Ratio (1.1-2.1) L 08/09/19 16:00 Influenza Type A Ag Negative-presumptive (NEGATIVE) 08/09/19 14:15 Influenza Type B Ag Negative-presumptive (NEGATIVE) 08/09/19 14:15 Mycoplasma pneumon IgG Negative (NEGATIVE) 08/09/19 16:00 SARS-CoV-2 (PCR) Positive (NEGATIVE) A 08/09/19 18:11 EKG [place]: Normal Rhythm: NSR Block: None Hypertrophy: None ST: Normal Opioid Opioid Risk Tool Age (Yevgeniy box if 16-45): No History of Preadolescent Sexual Abuse: No Total: 0 Total Score Risk Category: Low Risk Copyright: Delta KHANNA predicting aberrant behaviors Diagnosis Discharge Problem: COVID-19, Hypokalemia, Acute type 1 respiratory failure
[2019-08-09 16:54] LABS: ALANINE AMINOTRANSFERASE 33 Units/L (12-78); ALBUMIN 3.5 g/dL (3.4-5.0); ALKALINE PHOSPHATASE 100 Units/L (46-116); ASPARTATE AMINO TRANSFERASE 29 Units/L (15-37); BLOOD UREA NITROGEN 10 mg/dL (7-18); CALCIUM 9.5 mg/dL (8.5-10.1); CARBON DIOXIDE 28.8 mmol/L (21-32); CHLORIDE 98 mmol/L (98-107); CKMB % 1.2 % (<4); COR NA(FOR HYPERGLY) 142 mmol/L (136-145); CREATINE KINASE 83 Units/L (26-192); CREATINE KINASE MB < 1.0 ng/mL (0-4.0); CREATININE 0.84 mg/dL (0.55-1.02); MAGNESIUM 2.2 mg/dL (1.7-2.9); SODIUM 135 mmol/L (136-145); TOTAL PROTEIN 7.8 g/dL (6.4-8.2); TROPONIN I < 0.02 ng/mL (0-1.5); eGFR NON BLACK RACES > 60 (>60)
[2019-08-09 17:11] LABS: MYCOPLASMA PNEUMONIAE IGM AB NEGATIVE (NEGATIVE)
[2019-08-09] MEDS: NS + KCL 40 MEQ/L 1,000 ML IV SCH (18:16)
[2019-08-09 18:53] LABS: ABG BASE EXCESS 3.1 mmol/L (-2.0-2.0)
[2019-08-09] MEDS ORDERED: KLOR-CON PO ONE (21:09)
[2019-08-09] MEDS ORDERED: KLOR-CON ONE (21:51)
[2019-08-10] MEDS ORDERED: TYLENOL 325 MG TAB PO PRN (00:08)
[2019-08-10] MEDS ORDERED: HumuLIN R SC PRN (00:08)
[2019-08-10 00:48] VITALS: BMI 33.4
[2019-08-10] MEDS ORDERED: GLUCOPHAGE ONE ×3 (01:57→22:01)
[2019-08-10] MEDS ORDERED: LOVENOX INJ 40 MG SYR SC ONE (01:57)
[2019-08-10] MEDS ORDERED: LOVENOX INJ 40 MG SYR SC SCH (02:00)
[2019-08-10] MEDS: GLUCOPHAGE PO SCH ×3 (02:08→22:00)
[2019-08-10] MEDS ORDERED: NS + KCL 40 MEQ/L 1,000 ML IV ONE (02:12)
[2019-08-10] MEDS: NS + KCL 40 MEQ/L 1,000 ML IV SCH ×3 (02:16→18:10)
[2019-08-10 05:09] LABS: BASOPHILS % (AUTO) 0.2 % (0.2-1.0); HEMATOCRIT 41.4 % (36.0-47.0); LYMPHOCYTES # (AUTO) 1.8 X10^3/uL (1.3-2.9); LYMPHOCYTES % (AUTO) 27.9 % (21.0-51.0); MEAN CORPUSCULAR HEMOGLOBIN 30.5 pg (27.0-34.0); MEAN CORPUSCULAR HGB CONC 33.7 g/dL (33.0-35.0); MEAN CORPUSCULAR VOLUME 90.5 fL (80.0-100.0); MEAN PLATELET VOLUME 8.6 fL (7.4-11.0); MONOCYTES # (AUTO) 0.6 x10^3/uL (0.3-0.8); MONOCYTES % (AUTO) 8.4 % (0.0-13.0); NEUTROPHILS # (AUTO) 4.1 x10^3/uL (2.2-4.8); NEUTROPHILS % (AUTO) 63.5 % (42.0-75.0); PLATELET COUNT 165 X10^3/uL (150.0-450.0); RED BLOOD COUNT 4.58 X10^6/uL (3.5-5.4); RED CELL DISTRIBUTION WIDTH 12.4 % (11.6-16.5); WHITE BLOOD COUNT 6.5 X10^3/uL (3.6-10.0)
[2019-08-10 05:19] LABS: BLOOD UREA NITROGEN 10 mg/dL (7-18); CALCIUM 8.4 mg/dL (8.5-10.1); CARBON DIOXIDE 27.8 mmol/L (21-32); CHLORIDE 103 mmol/L (98-107); COR NA(FOR HYPERGLY) 140 mmol/L (136-145); CREATININE 0.81 mg/dL (0.55-1.02); MAGNESIUM 1.9 mg/dL (1.7-2.9); SODIUM 137 mmol/L (136-145); eGFR NON BLACK RACES > 60 (>60)
[2019-08-10] MEDS ORDERED: HumuLIN R ONE (05:35)
[2019-08-10] MEDS ORDERED: MAGNESIUM SULFATE 1 GRAM/100 mL PREMIX 1 G/100 ML BAG IV ONE (05:53)
[2019-08-10] MEDS: MAGNESIUM SULFATE 1 GRAM/100 mL PREMIX 1 GM/100 ML BAG IV PRN ×2 (06:20→09:19)
[2019-08-10] MEDS: ZITHROMAX TAB 250 MG PO SCH (09:18)
[2019-08-10] MEDS: MICRO K EXTEN CAP 10 MEQ PO SCH (09:19)
--- NOTE | 2019-08-10 09:36 | DR.H&P ---
H&P - History & Physical for Day of: H&P Date: 08/09/19 - Chief Complaint Chief Complaint: SOB, FEVER - History of Present Illness History of Present Illness: PT IS 54 WF ER ADMISSION WITH C/O > SOB, FEVER CHILLS AND PT'S SON AND DAUGHTER HAS BEEN TESTED COVID AND TESTED POSITIVE, PT WAS SEEN BY PCP 08/08/2019. PT PAST PUT ON STEROIDS AND Z-MAX. PT HAS HOME PULSE OX, AND SATS IN THE 80'S. PT TESTED COVID 19 POSITIVE IN THE ER WITH HYPOXIA ON ABG, CHEST XRAY REVEALING PNEUMONIA. PT HAS PMH OF HTN, DM. PT ADMITTED FOR TREATMENT OF ACUTE ILLNESS - Past Medical History Past Medical History: Hypertension, Diabetes, GERD, Migraines - Past Surgical History Surgical History: Cholecystectomy, [employer] Surgery, Hysterectomy - Family History Family Medical History: Diabetes Mellitus, Cancer - Social History Does patient currently use any type of tobacco product: No Have you used tobacco products in the last 12 months: No Type of Tobacco Use: None Does any household member use tobacco: No Alcohol Use: None Drug Use: None - Medications Home Medications: ciprofloxacin [From Cipro] Allergy (Verified 08/09/19 17:54) codeine Allergy (Verified 08/09/19 17:54) diphenhydramine [From Benadryl] Allergy (Verified 08/09/19 17:54) promethazine [From Phenergan] Allergy (Verified 08/09/19 17:54) tetanus and diphtheria toxoids Allergy (Verified 08/09/19 17:54) CONTINUE taking the following medications Methyiprednisolone 4 mg PO DIRECTED 08/09/19 [History] acetaminophen [Tylenol] 325 mg PO Q4-6H PRN 08/09/19 [History] amlodipine [Norvasc] 5 mg PO DAILY 08/09/19 [History] azithromycin [Zithromax] 250 mg PO DAILY 08/09/19 [History] celecoxib [Celebrex] 100 mg PO BID 08/09/19 [History] dimenhydrinate 50 mg PO PRN PRN 08/09/19 [History] furosemide [Lasix] 20 mg PO BID PRN 08/09/19 [History] glipizide 2.5 mg PO DAILY 08/09/19 [History] glipizide 2.5 mg PO DAILY 08/09/19 [History] loratadine 10 mg PO DAILY 08/09/19 [History] metformin 500 mg PO Q12H 08/09/19 [History] potassium chloride 10 meq PO BID PRN 08/09/19 [History] - Review of Systems Constitutional: Fever, Weakness, Malaise Eyes: No Symptoms Reported ENT: No Symptoms Reported Respiratory: Cough, Shortness of Breath, SOB with Excertion Cardiovascular: No Symptoms Reported Gastrointestinal: Nausea Genitourinary: No Symptoms Reported Musculoskeletal: No Symptoms Reported Skin: No Symptoms Reported Neurological: No Symptoms Reported - Physical Exam Vital Signs: Temperature 99.0 F Pulse Rate [Left Brachial] 57 Pulse Rate 67 Respiratory Rate 23 Blood Pressure [Right Arm] 118/57 Blood Pressure 121/50 O2 Sat by Pulse Oximetry 97 Oriented: Normal Eyes: Normal Ear: Normal Nose: Normal Throat: Dry Respiratory: Diminished Throughout Cardiovascular: Tachycardia. negative: Edema : Normal Auscultation: Bowel Sounds: Normal Palpation: Normal Tenderness: Normal Skin: Normal Musculoskeletal: Normal Psychiatric: Anxiety Affect: Anxious Speech Pattern: Clear, Appropriate - Assessment/Plan (1) SOB (shortness of breath) Status: Acute Plan: ADMIT, ICU COVID UNIT/ISOLATION. CE ON ADMISSION ABG ON ADMISSION, SUPPLEMENTAL O2. REPEAT ABG, SPUTUM CULTURE, IV ATBX THERAPY. VERIFY HOME MEDICATION, EKG MONITORING. BS CONTROL, BP CONTROL, RESP THERAPY (2) Pneumonia Status: Acute (3) Diabetes Status: Acute (4) Hypertension Status: Acute (5) COVID-19 Status: Acute - Allergies Allergies/Adverse Reactions: Allergies Allergy/AdvReac Type Severity Reaction Status Date / Time ciprofloxacin [From Cipro] Allergy Verified 08/09/19 17:54 codeine Allergy Verified 08/09/19 17:54 diphenhydramine Allergy Verified 08/09/19 17:54 [From Benadryl] promethazine [From Phenergan] Allergy Verified 08/09/19 17:54 tetanus and diphtheria Allergy Verified 08/09/19 17:54 toxoids
[2019-08-10] MEDS ORDERED: REMDESIVIR (INVESTIGATIONAL DRUG GS-5734) 200 MG in NS 250 ML IV 250 ML IV NR (09:45)
[2019-08-10] MEDS ORDERED: VENTOLIN or PROAIR HFA IN SCH (11:45)
[2019-08-10 12:02] LABS: ABG BASE EXCESS 0.8 mmol/L (-2.0-2.0); ABG HCO3 25.3 mmol/L (22-26)
[2019-08-10] MEDS: ZOSYN VIAL 3.375 GRAMS 3.375 G in NS 100 ML IV + SPIKE MINIBAG* 100 ML IV SCH ×2 (13:30→15:06)
[2019-08-10] MEDS: HumuLIN R SC SCH ×3 (13:35→22:00)
[2019-08-10] MEDS ORDERED: ROBITUSSIN DM PO PRN (17:00)
[2019-08-10] MEDS: VENTOLIN or PROAIR HFA IN SCH ×2 (17:50→21:00)
[2019-08-10] MEDS ORDERED: ROBITUSSIN DM ONE (17:58)
[2019-08-10] MEDS: ROBITUSSIN DM PO SCH ×2 (18:10→22:00)
[2019-08-10] MEDS: ZOSYN VIAL 3.375 GRAMS 3.375 G in NS 100 ML IV 100 ML IV SCH (22:06)
[2019-08-11] MEDS: VENTOLIN or PROAIR HFA IN SCH ×6 (01:00→21:00)
[2019-08-11] MEDS: NS + KCL 40 MEQ/L 1,000 ML IV SCH ×4 (02:08→23:42)
[2019-08-11] MEDS: VISTARIL PO PRN ×2 (02:41→21:27)
[2019-08-11 05:20] LABS: BASOPHILS % (AUTO) 0.4 % (0.2-1.0); EOSINOPHILS % (AUTO) 0.2 % (0.9-2.9); HEMATOCRIT 39.9 % (36.0-47.0); HEMOGLOBIN 13.5 g/dL (12.0-16.0); LYMPHOCYTES # (AUTO) 1.4 X10^3/uL (1.3-2.9); LYMPHOCYTES % (AUTO) 29.4 % (21.0-51.0); MEAN CORPUSCULAR HEMOGLOBIN 30.7 pg (27.0-34.0); MEAN CORPUSCULAR HGB CONC 33.8 g/dL (33.0-35.0); MEAN CORPUSCULAR VOLUME 90.8 fL (80.0-100.0); MEAN PLATELET VOLUME 8.5 fL (7.4-11.0); MONOCYTES # (AUTO) 0.4 x10^3/uL (0.3-0.8); MONOCYTES % (AUTO) 8.1 % (0.0-13.0); NEUTROPHILS # (AUTO) 2.9 x10^3/uL (2.2-4.8); NEUTROPHILS % (AUTO) 61.9 % (42.0-75.0); PLATELET COUNT 153 X10^3/uL (150.0-450.0); RED BLOOD COUNT 4.39 X10^6/uL (3.5-5.4); RED CELL DISTRIBUTION WIDTH 12.5 % (11.6-16.5); WHITE BLOOD COUNT 4.7 X10^3/uL (3.6-10.0)
[2019-08-11] MEDS: ZOSYN VIAL 3.375 GRAMS 3.375 G in NS 100 ML IV 100 ML IV SCH ×3 (05:35→23:43)
[2019-08-11] MEDS: HumuLIN R SC SCH ×4 (05:36→21:24)
[2019-08-11 05:40] LABS: ALANINE AMINOTRANSFERASE 30 Units/L (12-78); ALBUMIN 2.8 g/dL (3.4-5.0); ALKALINE PHOSPHATASE 79 Units/L (46-116); ASPARTATE AMINO TRANSFERASE 30 Units/L (15-37); BLOOD UREA NITROGEN 5 mg/dL (7-18); CALCIUM 8.2 mg/dL (8.5-10.1); CARBON DIOXIDE 28.2 mmol/L (21-32); CHLORIDE 105 mmol/L (98-107); COR CA(FOR HYPOALB) 9.2 mg/dL (8.5-10.1); COR NA(FOR HYPERGLY) 141 mmol/L (136-145); CREATININE 0.69 mg/dL (0.55-1.02); MAGNESIUM 2.2 mg/dL (1.7-2.9); SODIUM 139 mmol/L (136-145); TOTAL PROTEIN 6.2 g/dL (6.4-8.2); eGFR NON BLACK RACES > 60 (>60)
[2019-08-11] MEDS ORDERED: GLUCOPHAGE ONE ×2 (07:53→21:09)
[2019-08-11] MEDS ORDERED: LOVENOX INJ 40 MG SYR SC ONE (07:54)
[2019-08-11] MEDS: MICRO K EXTEN CAP 10 MEQ PO SCH (08:41)
[2019-08-11] MEDS: GLUCOPHAGE PO SCH ×3 (08:41→21:26)
[2019-08-11] MEDS: LOVENOX INJ 40 MG SYR SC SCH (08:41)
[2019-08-11] MEDS: ROBITUSSIN DM PO SCH ×4 (08:42→21:25)
[2019-08-11] MEDS: ZITHROMAX TAB 250 MG PO SCH (08:42)
[2019-08-11] MEDS: REMDESIVIR (INVESTIGATIONAL DRUG GS-5734) 100 MG in NS 250 ML IV 250 ML IV SCH (08:42)
--- NOTE | 2019-08-11 09:03 | PCM.PROG ---
Progress Note Progress Note for Day of Date of Exam: 08/11/19 Subjective Subjective: Patient seen at bedside, no events overnight. Patient states she feels a lot better today. She is currently on 3L oxygen, reports improvement in cough. She is admitted for COVID-19 pneumonia. Patient had some diarrhea yesterday but none today so far. She has not been eating much. Labs: COVID-19 positive Blood Glucose: 169 CXR: bibasilar interstitial infiltrates, R>L Plan: continue current treatment with Zosyn and Zithromax, continue Remdesivir, wean oxygen as tolerated, continue albuterol prn. Will send stool studies to check for C.diff. Will add solumedrol. Past Medical Family Social History Past Med/Fam/Surg Hx: No changes since H&P Allergies: Allergies ciprofloxacin [From Cipro] Allergy (Verified 08/09/19 17:54) codeine Allergy (Verified 08/09/19 17:54) diphenhydramine [From Benadryl] Allergy (Verified 08/09/19 17:54) promethazine [From Phenergan] Allergy (Verified 08/09/19 17:54) tetanus and diphtheria toxoids Allergy (Verified 08/09/19 17:54) Review of Systems ROS: No change since H&P Vital Signs and I&O's Vital Signs: Temperature 98.3 F Pulse Rate [Left Brachial] 56 Pulse Rate 96 Respiratory Rate 24 Blood Pressure [Right Arm] 138/63 Blood Pressure 121/50 O2 Sat by Pulse Oximetry 98 Intake and Output: Intake & Output 08/08/19 08/09/19 08/10/19 08/11/19 23:59 23:59 23:59 23:59 Intake Total 200 / 200 4746 / 4746 680 / 680 Balance 200 / 200 4746 / 4746 680 / 680 Physical Exam Oriented: Normal Eyes: Normal Ear: Normal Nose: Normal Throat: Dry Respiratory: Generalized and Diminished Cardiovascular: negative Edema Auscultation: Bowel Sounds: Normal Tenderness: Normal Skin: Normal Musculoskeletal: Normal Psychiatric: Normal Mood Description: Calm Affect: Normal Speech Pattern: Clear and Appropriate Laboratory and Diagnostics Result Diagrams: 08/11/19 05:00 08/11/19 05:00 Labs: Laboratory WBC 4.7 X10^3/uL (3.6-10.0) 08/11/19 05:00 RBC 4.39 X10^6/uL (3.5-5.4) 08/11/19 05:00 Hgb 13.5 g/dL (12.0-16.0) 08/11/19 05:00 Hct 39.9 % (36.0-47.0) 08/11/19 05:00 MCV 90.8 fL (80.0-100.0) 08/11/19 05:00 MCH 30.7 pg (27.0-34.0) 08/11/19 05:00 MCHC 33.8 g/dL (33.0-35.0) 08/11/19 05:00 RDW 12.5 % (11.6-16.5) 08/11/19 05:00 Plt Count 153 X10^3/uL (150.0-450.0) 08/11/19 05:00 MPV 8.5 fL (7.4-11.0) 08/11/19 05:00 Neut % (Auto) 61.9 % (42.0-75.0) 08/11/19 05:00 Lymph % (Auto) 29.4 % (21.0-51.0) 08/11/19 05:00 [place] % (Auto) 8.1 % (0.0-13.0) 08/11/19 05:00 Eos % (Auto) 0.2 % (0.9-2.9) L 08/11/19 05:00 Baso % (Auto) 0.4 % (0.2-1.0) 08/11/19 05:00 Neut # (Auto) 2.9 x10^3/uL (2.2-4.8) 08/11/19 05:00 Lymph # (Auto) 1.4 X10^3/uL (1.3-2.9) 08/11/19 05:00 [place] # (Auto) 0.4 x10^3/uL (0.3-0.8) 08/11/19 05:00 Eos # (Auto) 0.0 x10^3/uL (0.0-0.2) 08/11/19 05:00 Baso # (Auto) 0.0 X10^3/uL (0.0-0.1) 08/11/19 05:00 Absolute Nucleated RBC 0.1 /100WBC 08/11/19 05:00 Sample Site Rbra 08/10/19 12:00 ABG pH 7.420 (7.35-7.45) 08/10/19 12:00 ABG pCO2 39.0 mmHg (35.0-45.0) 08/10/19 12:00 ABG pO2 65.0 mmHg (80.0-100.0) L 08/10/19 12:00 ABG HCO3 25.3 mmol/L (22-26) 08/10/19 12:00 ABG O2 Saturation 93.0 % (90-100) 08/10/19 12:00 ABG Base Excess 0.8 mmol/L (-2.0-2.0) 08/10/19 12:00 Dion Test N/a 08/10/19 12:00 A-a Gradient 36.0 mmHg 08/10/19 12:00 FiO2 21.0 08/10/19 12:00 Blood Gas Comments Pt simone well eb 08/10/19 12:00 Sodium 139 mmol/L (136-145) 08/11/19 05:00 Corrected Sodium 141 mmol/L (136-145) 08/11/19 05:00 Potassium 3.9 mmol/L (3.5-5.1) 08/11/19 05:00 Chloride 105 mmol/L (98-107) 08/11/19 05:00 Carbon Dioxide 28.2 mmol/L (21-32) 08/11/19 05:00 BUN 5 mg/dL (7-18) L 08/11/19 05:00 Creatinine 0.69 mg/dL (0.55-1.02) 08/11/19 05:00 Est GFR (MDRD) Af Amer > 60 (>60) 08/11/19 05:00 Est GFR (MDRD) Non-Af > 60 (>60) 08/11/19 05:00 Glucose 169 mg/dL (65-99) H 08/11/19 05:00 Calcium 8.2 mg/dL (8.5-10.1) L 08/11/19 05:00 Corrected Calcium 9.2 mg/dL (8.5-10.1) 08/11/19 05:00 Magnesium 2.2 mg/dL (1.7-2.9) 08/11/19 05:00 Total Bilirubin 0.50 mg/dL (0.2-1.0) 08/11/19 05:00 AST 30 Units/L (15-37) 08/11/19 05:00 ALT 30 Units/L (12-78) 08/11/19 05:00 Alkaline Phosphatase 79 Units/L (46-116) 08/11/19 05:00 Creatine Kinase 83 Units/L (26-192) 08/09/19 16:00 Creatine Kinase Cancelled 08/09/19 16:00 CK-MB (CK-2) < 1.0 ng/mL (0-4.0) 08/09/19 16:00 CK-MB (CK-2) Cancelled 08/09/19 16:00 CK/CKMB % Calc 1.2 % (<4) 08/09/19 16:00 CK/CKMB % Calc Cancelled 08/09/19 16:00 Troponin I < 0.02 ng/mL (0-1.5) 08/09/19 16:00 Troponin I Cancelled 08/09/19 16:00 B-Natriuretic Peptide 28.3 pg/mL (0-79) 08/09/19 16:00 Total Protein 6.2 g/dL (6.4-8.2) L 08/11/19 05:00 Albumin 2.8 g/dL (3.4-5.0) L 08/11/19 05:00 Globulin 3.4 g/dL (2.5-4.5) 08/11/19 05:00 Albumin/Globulin Ratio 0.8 Ratio (1.1-2.1) L 08/11/19 05:00 Influenza Type A Ag Negative-presumptive (NEGATIVE) 08/09/19 14:15 Influenza Type B Ag Negative-presumptive (NEGATIVE) 08/09/19 14:15 Mycoplasma pneumon IgG Negative (NEGATIVE) 08/09/19 16:00 SARS-CoV-2 (PCR) Positive (NEGATIVE) A 08/09/19 18:11 Plan (1) COVID-19: Status: Acute (2) SOB (shortness of breath): Status: Acute Plan: ADMIT, ICU COVID UNIT/ISOLATION CE ON ADMISSION ABG ON ADMISSION, SUPPLEMENTAL O2 REPEAT ABG, SPUTUM CULTURE, IV ATBX THERAPY VERIFY HOME MEDICATION, EKG MONITORING BS CONTROL, BP CONTROL, RESP THERAPY (3) Pneumonia: Status: Acute Qualifiers: Pneumonia type: due to unspecified organism Lung location: unspecified part of lung Laterality: bilateral Qualified Code(s): J18.9 - Pneumonia, u nspecified organism (4) Diabetes: Status: Acute Qualifiers: Diabetes mellitus type: type 2 Diabetes mellitus 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
[2019-08-11] MEDS: SOLU-Medrol 40 MG VIAL IVP SCH ×2 (16:34→21:26)
[2019-08-12] MEDS ORDERED: ZOSYN VIAL 3.375 GRAMS IV ONE (01:38)
[2019-08-12] MEDS ORDERED: NS 100 ML IV 100 ML IV ONE (01:39)
[2019-08-12 05:17] LABS: BASOPHILS % (AUTO) 0.3 % (0.2-1.0); HEMATOCRIT 41.5 % (36.0-47.0); HEMOGLOBIN 14.1 g/dL (12.0-16.0); LYMPHOCYTES # (AUTO) 0.5 X10^3/uL (1.3-2.9); LYMPHOCYTES % (AUTO) 13.4 % (21.0-51.0); MEAN CORPUSCULAR HEMOGLOBIN 30.5 pg (27.0-34.0); MEAN CORPUSCULAR HGB CONC 33.9 g/dL (33.0-35.0); MEAN PLATELET VOLUME 8.7 fL (7.4-11.0); MONOCYTES # (AUTO) 0.1 x10^3/uL (0.3-0.8); NEUTROPHILS # (AUTO) 3.4 x10^3/uL (2.2-4.8); NEUTROPHILS % (AUTO) 83.3 % (42.0-75.0); PLATELET COUNT 200 X10^3/uL (150.0-450.0); RED BLOOD COUNT 4.61 X10^6/uL (3.5-5.4); RED CELL DISTRIBUTION WIDTH 12.6 % (11.6-16.5); WHITE BLOOD COUNT 4.1 X10^3/uL (3.6-10.0)
[2019-08-12] MEDS: ZOSYN VIAL 3.375 GRAMS 3.375 G in NS 100 ML IV 100 ML IV SCH (05:40)
[2019-08-12] MEDS: NS + KCL 40 MEQ/L 1,000 ML IV SCH (05:40)
[2019-08-12 05:42] LABS: ALANINE AMINOTRANSFERASE 29 Units/L (12-78); ALKALINE PHOSPHATASE 83 Units/L (46-116); ASPARTATE AMINO TRANSFERASE 26 Units/L (15-37); BLOOD UREA NITROGEN 7 mg/dL (7-18); CALCIUM 8.7 mg/dL (8.5-10.1); CARBON DIOXIDE 23.9 mmol/L (21-32); CHLORIDE 104 mmol/L (98-107); COR CA(FOR HYPOALB) 9.5 mg/dL (8.5-10.1); COR NA(FOR HYPERGLY) 141 mmol/L (136-145); CREATININE 0.66 mg/dL (0.55-1.02); SODIUM 137 mmol/L (136-145); TOTAL PROTEIN 6.8 g/dL (6.4-8.2); eGFR NON BLACK RACES > 60 (>60)
[2019-08-12] MEDS ORDERED: GLUCOPHAGE ONE (08:15)
[2019-08-12] MEDS ORDERED: ZITHROMAX TAB 250 MG PO ONE (08:15)
[2019-08-12] MEDS: VENTOLIN or PROAIR HFA IN SCH ×3 (08:47→12:15)
[2019-08-12] MEDS ORDERED: NORVASC TAB 5 MG PO SCH (09:00)
[2019-08-12] MEDS: GLUCOPHAGE PO SCH (09:23)
[2019-08-12] MEDS: HumuLIN R SC SCH ×2 (09:23→11:15)
[2019-08-12] MEDS: LOVENOX INJ 40 MG SYR SC SCH (09:27)
[2019-08-12] MEDS: ZITHROMAX TAB 250 MG PO SCH (09:27)
[2019-08-12] MEDS: MICRO K EXTEN CAP 10 MEQ PO SCH (09:28)
[2019-08-12] MEDS: REMDESIVIR (INVESTIGATIONAL DRUG GS-5734) 100 MG in NS 250 ML IV 250 ML IV SCH (09:28)
[2019-08-12] MEDS: ROBITUSSIN DM PO SCH (09:29)
[2019-08-12] MEDS: SOLU-Medrol 40 MG VIAL IVP SCH (09:29)
[2019-08-12 12:23] VITALS: BP 136/59
--- NOTE | 2019-08-12 12:39 | W.DIS.FURT ---
Summary of Discharge Admission Diagnosis Patient Problems (Updated 08/11/19 @ 14:21 by Angie Ramirez) COVID-19 (Acute) U07.1 Hypokalemia (Acute) E87.6 Acute type 1 respiratory failure (Acute) J96.01 SOB (shortness of breath) (Acute) R06.02 Pneumonia (Acute) J18.9 Diabetes (Acute) E11.9 Hypertension (Acute) I10 Vital Signs: Vital Signs (72 hours) 08/09/19 15:12 08/09/19 15:37 08/09/19 15:45 Temperature 96.3 F L Pulse Rate 77 83 71 Pulse Rate [Left Brachial] Respiratory Rate 18 Blood Pressure 146/84 Blood Pressure [Right Arm] O2 Sat by Pulse Oximetry 93 L 94 L 93 L 08/09/19 15:59 08/09/19 16:00 08/09/19 16:15 Temperature Pulse Rate 72 71 68 Pulse Rate [Left Brachial] Respiratory Rate 18 18 Blood Pressure 148/72 Blood Pressure [Right Arm] O2 Sat by Pulse Oximetry 94 L 94 L 94 L 08/09/19 16:30 08/09/19 16:31 08/09/19 16:45 Temperature Pulse Rate 65 63 63 Pulse Rate [Left Brachial] Respiratory Rate 21 16 19 Blood Pressure 143/66 Blood Pressure [Right Arm] O2 Sat by Pulse Oximetry 99 99 98 08/09/19 17:00 08/09/19 17:15 08/09/19 17:30 Temperature Pulse Rate 63 63 63 Pulse Rate [Left Brachial] Respiratory Rate 15 26 H 28 H Blood Pressure 135/63 151/75 Blood Pressure [Right Arm] O2 Sat by Pulse Oximetry 97 100 98 08/09/19 17:45 08/09/19 18:00 08/09/19 18:15 Temperature Pulse Rate 63 59 L 63 Pulse Rate [Left Brachial] Respiratory Rate 20 Blood Pressure 137/66 Blood Pressure [Right Arm] O2 Sat by Pulse Oximetry 99 99 99 08/09/19 18:30 08/09/19 18:45 08/09/19 19:00 Temperature Pulse Rate 61 64 62 Pulse Rate [Left Brachial] Respiratory Rate Blood Pressure 134/68 147/71 Blood Pressure [Right Arm] O2 Sat by Pulse Oximetry 99 99 98 08/09/19 19:15 08/09/19 19:30 08/09/19 19:31 Temperature Pulse Rate 62 65 63 Pulse Rate [Left Brachial] Respiratory Rate Blood Pressure 121/50 Blood Pressure [Right Arm] O2 Sat by Pulse Oximetry 100 100 99 08/09/19 22:34 08/09/19 23:00 08/09/19 23:27 Temperature Pulse Rate 67 Pulse Rate [Left Brachial] 98 H 64 Respiratory Rate 20 21 Blood Pressure Blood Pressure [Right Arm] 151/76 O2 Sat by Pulse Oximetry 96 99 99 08/10/19 00:00 08/10/19 01:00 08/10/19 02:00 Temperature 99.3 F Pulse Rate Pulse Rate [Left Brachial] 62 60 59 L Respiratory Rate 25 H 24 25 H Blood Pressure Blood Pressure [Right Arm] 135/63 135/63 124/59 O2 Sat by Pulse Oximetry 97 97 97 08/10/19 03:00 08/10/19 04:00 08/10/19 05:00 Temperature 99.0 F Pulse Rate Pulse Rate [Left Brachial] 61 59 L 59 L Respiratory Rate 24 26 H 24 Blood Pressure Blood Pressure [Right Arm] 141/63 149/65 118/57 O2 Sat by Pulse Oximetry 99 99 98 08/10/19 06:00 08/10/19 07:00 08/10/19 08:00 Temperature 98.8 F Pulse Rate Pulse Rate [Left Brachial] 57 L 57 L 64 Respiratory Rate 23 23 28 H Blood Pressure Blood Pressure [Right Arm] 118/57 122/58 133/57 O2 Sat by Pulse Oximetry 97 98 97 08/10/19 09:00 08/10/19 10:00 08/10/19 11:00 Temperature Pulse Rate Pulse Rate [Left Brachial] 60 61 59 L Respiratory Rate 26 H 31 H 23 Blood Pressure Blood Pressure [Right Arm] 124/60 130/60 133/62 O2 Sat by Pulse Oximetry 97 98 98 08/10/19 12:00 08/10/19 13:00 08/10/19 13:40 Temperature 98.7 F Pulse Rate 68 Pulse Rate [Left Brachial] 61 63 Respiratory Rate 23 25 H Blood Pressure Blood Pressure [Right Arm] 135/60 127/60 O2 Sat by Pulse Oximetry 98 98 99 08/10/19 14:00 08/10/19 15:00 08/10/19 16:00 Temperature 98.8 F Pulse Rate Pulse Rate [Left Brachial] 67 62 64 Respiratory Rate 25 H 25 H 26 H Blood Pressure Blood Pressure [Right Arm] 118/58 117/58 131/60 O2 Sat by Pulse Oximetry 98 98 98 08/10/19 17:00 08/10/19 17:50 08/10/19 18:00 Temperature Pulse Rate 66 Pulse Rate [Left Brachial] 58 L 68 Respiratory Rate 24 24 Blood Pressure Blood Pressure [Right Arm] 138/63 126/60 O2 Sat by Pulse Oximetry 97 96 97 08/10/19 19:00 08/10/19 20:00 08/10/19 21:00 Temperature 98.7 F Pulse Rate Pulse Rate [Left Brachial] 64 64 62 Respiratory Rate 28 H 24 24 Blood Pressure Blood Pressure [Right Arm] 124/58 129/67 125/61 O2 Sat by Pulse Oximetry 97 98 98 08/10/19 22:00 08/10/19 23:00 08/10/19 23:45 Temperature Pulse Rate 96 H Pulse Rate [Left Brachial] 64 64 Respiratory Rate 24 25 H Blood Pressure Blood Pressure [Right Arm] 128/59 136/62 O2 Sat by Pulse Oximetry 98 99 97 08/11/19 00:00 08/11/19 01:00 08/11/19 02:00 Temperature 98.2 F Pulse Rate Pulse Rate [Left Brachial] 62 59 L 56 L Respiratory Rate 31 H 30 H 32 H Blood Pressure Blood Pressure [Right Arm] 135/63 128/60 134/63 O2 Sat by Pulse Oximetry 98 98 98 08/11/19 03:00 08/11/19 04:00 08/11/19 05:00 Temperature 98.3 F Pulse Rate Pulse Rate [Left Brachial] 56 L 56 L 57 L Respiratory Rate 24 24 34 H Blood Pressure Blood Pressure [Right Arm] 145/69 133/66 131/62 O2 Sat by Pulse Oximetry 98 98 98 08/11/19 06:00 08/11/19 07:00 08/11/19 08:00 Temperature 98.0 F Pulse Rate Pulse Rate [Left Brachial] 56 L 57 L 51 L Respiratory Rate 24 39 H 25 H Blood Pressure Blood Pressure [Right Arm] 138/63 132/61 133/61 O2 Sat by Pulse Oximetry 98 97 98 08/11/19 09:00 08/11/19 09:22 08/11/19 10:00 Temperature Pulse Rate 68 Pulse Rate [Left Brachial] 55 L 63 Respiratory Rate 24 23 Blood Pressure Blood Pressure [Right Arm] 142/67 123/93 O2 Sat by Pulse Oximetry 97 98 96 08/11/19 11:00 08/11/19 12:00 08/11/19 13:00 Temperature 98.1 F Pulse Rate Pulse Rate [Left Brachial] 62 63 66 Respiratory Rate 23 23 30 H Blood Pressure Blood Pressure [Right Arm] 131/61 135/63 127/80 O2 Sat by Pulse Oximetry 96 95 96 08/11/19 13:08 08/11/19 14:00 08/11/19 15:00 Temperature Pulse Rate 68 Pulse Rate [Left Brachial] 67 69 Respiratory Rate 24 24 Blood Pressure Blood Pressure [Right Arm] 131/62 124/60 O2 Sat by Pulse Oximetry 97 94 L 94 L 08/11/19 16:00 08/11/19 17:00 08/11/19 17:30 Temperature 98.8 F Pulse Rate 66 Pulse Rate [Left Brachial] 62 61 Respiratory Rate 23 28 H Blood Pressure Blood Pressure [Right Arm] 130/64 O2 Sat by Pulse Oximetry 96 93 L 93 L 08/11/19 18:00 08/11/19 20:00 08/12/19 00:00 Temperature 99.5 F 99 F Pulse Rate Pulse Rate [Left Brachial] 65 64 76 Respiratory Rate 26 H 25 H 19 Blood Pressure Blood Pressure [Right Arm] 152/71 147/68 133/60 O2 Sat by Pulse Oximetry 94 L 96 92 L 08/12/19 04:00 08/12/19 08:00 08/12/19 09:00 Temperature 99 F 98.0 F 98.0 F Pulse Rate Pulse Rate [Left Brachial] 56 L 68 Respiratory Rate 19 23 23 Blood Pressure 121/50 Blood Pressure [Right Arm] 138/64 143/66 O2 Sat by Pulse Oximetry 92 L 91 L 92 L 08/12/19 12:00 Temperature 98.0 F Pulse Rate Pulse Rate [Left Brachial] 70 Respiratory Rate 23 Blood Pressure Blood Pressure [Right Arm] 136/59 O2 Sat by Pulse Oximetry 94 L Labs: Laboratory Last Values WBC 4.1 X10^3/uL (3.6-10.0) 08/12/19 04:50 RBC 4.61 X10^6/uL (3.5-5.4) 08/12/19 04:50 Hgb 14.1 g/dL (12.0-16.0) 08/12/19 04:50 Hct 41.5 % (36.0-47.0) 08/12/19 04:50 MCV 90.0 fL (80.0-100.0) 08/12/19 04:50 MCH 30.5 pg (27.0-34.0) 08/12/19 04:50 MCHC 33.9 g/dL (33.0-35.0) 08/12/19 04:50 RDW 12.6 % (11.6-16.5) 08/12/19 04:50 Plt Count 200 X10^3/uL (150.0-450.0) 08/12/19 04:50 MPV 8.7 fL (7.4-11.0) 08/12/19 04:50 Neut % (Auto) 83.3 % (42.0-75.0) H 08/12/19 04:50 Lymph % (Auto) 13.4 % (21.0-51.0) L 08/12/19 04:50 [place] % (Auto) 3.0 % (0.0-13.0) 08/12/19 04:50 Eos % (Auto) 0.0 % (0.9-2.9) L 08/12/19 04:50 Baso % (Auto) 0.3 % (0.2-1.0) 08/12/19 04:50 Neut # (Auto) 3.4 x10^3/uL (2.2-4.8) 08/12/19 04:50 Lymph # (Auto) 0.5 X10^3/uL (1.3-2.9) L 08/12/19 04:50 [place] # (Auto) 0.1 x10^3/uL (0.3-0.8) L 08/12/19 04:50 Eos # (Auto) 0.0 x10^3/uL (0.0-0.2) 08/12/19 04:50 Baso # (Auto) 0.0 X10^3/uL (0.0-0.1) 08/12/19 04:50 Absolute Nucleated RBC 0.1 /100WBC 08/12/19 04:50 Sample Site Rbra 08/10/19 12:00 ABG pH 7.420 (7.35-7.45) 08/10/19 12:00 ABG pCO2 39.0 mmHg (35.0-45.0) 08/10/19 12:00 ABG pO2 65.0 mmHg (80.0-100.0) L 08/10/19 12:00 ABG HCO3 25.3 mmol/L (22-26) 08/10/19 12:00 ABG O2 Saturation 93.0 % (90-100) 08/10/19 12:00 ABG Base Excess 0.8 mmol/L (-2.0-2.0) 08/10/19 12:00 Dion Test N/a 08/10/19 12:00 A-a Gradient 36.0 mmHg 08/10/19 12:00 FiO2 21.0 08/10/19 12:00 Blood Gas Comments Pt simone well eb 08/10/19 12:00 Sodium 137 mmol/L (136-145) 08/12/19 04:50 Corrected Sodium 141 mmol/L (136-145) 08/12/19 04:50 Potassium 4.3 mmol/L (3.5-5.1) 08/12/19 04:50 Chloride 104 mmol/L (98-107) 08/12/19 04:50 Carbon Dioxide 23.9 mmol/L (21-32) 08/12/19 04:50 BUN 7 mg/dL (7-18) 08/12/19 04:50 Creatinine 0.66 mg/dL (0.55-1.02) 08/12/19 04:50 Est GFR (MDRD) Af Amer > 60 (>60) 08/12/19 04:50 Est GFR (MDRD) Non-Af > 60 (>60) 08/12/19 04:50 Glucose 262 mg/dL (65-99) H 08/12/19 04:50 Calcium 8.7 mg/dL (8.5-10.1) 08/12/19 04:50 Corrected Calcium 9.5 mg/dL (8.5-10.1) 08/12/19 04:50 Magnesium 2.2 mg/dL (1.7-2.9) 08/11/19 05:00 Total Bilirubin 0.40 mg/dL (0.2-1.0) 08/12/19 04:50 AST 26 Units/L (15-37) 08/12/19 04:50 ALT 29 Units/L (12-78) 08/12/19 04:50 Alkaline Phosphatase 83 Units/L (46-116) 08/12/19 04:50 Creatine Kinase 83 Units/L (26-192) 08/09/19 16:00 Creatine Kinase Cancelled 08/09/19 16:00 CK-MB (CK-2) < 1.0 ng/mL (0-4.0) 08/09/19 16:00 CK-MB (CK-2) Cancelled 08/09/19 16:00 CK/CKMB % Calc 1.2 % (<4) 08/09/19 16:00 CK/CKMB % Calc Cancelled 08/09/19 16:00 Troponin I < 0.02 ng/mL (0-1.5) 08/09/19 16:00 Troponin I Cancelled 08/09/19 16:00 B-Natriuretic Peptide 28.3 pg/mL (0-79) 08/09/19 16:00 Total Protein 6.8 g/dL (6.4-8.2) 08/12/19 04:50 Albumin 3.0 g/dL (3.4-5.0) L 08/12/19 04:50 Globulin 3.8 g/dL (2.5-4.5) 08/12/19 04:50 Albumin/Globulin Ratio 0.8 Ratio (1.1-2.1) L 08/12/19 04:50 Stool for White Cells Negative (NEGATIVE) 08/11/19 10:10 Stl C. diff Tox B Gene Negative (NEGATIVE) 08/11/19 10:10 Stl C. diff [id number] Negative (NEGATIVE) 08/11/19 10:10 Influenza Type A Ag Negative-presumptive (NEGATIVE) 08/09/19 14:15 Influenza Type B Ag Negative-presumptive (NEGATIVE) 08/09/19 14:15 Mycoplasma pneumon IgG Negative (NEGATIVE) 08/09/19 16:00 SARS-CoV-2 (PCR) Positive (NEGATIVE) A 08/09/19 18:11 Reason For Visit: COVID 19, TYPE 1 RESPIRATORY FAILURE, HYPOKALEMIA, Discharge Diagnosis All Active Problems (Updated 08/11/19 @ 14:21 by Angie Taveras COVID-19 (Acute) Hypokalemia (Acute) Acute type 1 respiratory failure (Acute) SOB (shortness of breath) (Acute) Pneumonia (Acute) Diabetes (Acute) Hypertension (Acute) Diabetes mellitus (Chronic) Plan of Treatment: Continue with present treatment and follow up plan. Pt is to keep follow up appointment as instructed and take medications as ordered. Discharge Medications Discharge Medications: ciprofloxacin [From Cipro] Allergy (Verified 08/09/19 17:54) codeine Allergy (Verified 08/09/19 17:54) diphenhydramine [From Benadryl] Allergy (Verified 08/09/19 17:54) promethazine [From Phenergan] Allergy (Verified 08/09/19 17:54) tetanus and diphtheria toxoids Allergy (Verified 08/09/19 17:54) CONTINUE taking the following medications amlodipine [Norvasc] 5 mg PO DAILY 08/09/19 [History] celecoxib [Celebrex] 100 mg PO BID 08/09/19 [History] dimenhydrinate 50 mg PO PRN PRN 08/09/19 [History] furosemide [Lasix] 20 mg PO BID PRN 08/09/19 [History] glipizide 2.5 mg PO DAILY 08/09/19 [History] loratadine 10 mg PO DAILY 08/09/19 [History] metformin 500 mg PO Q12H 08/09/19 [History] potassium chloride 10 meq PO BID PRN 08/09/19 [History] New Prescriptions albuterol sulfate 2 puff IN Q6H PRN #6.7 g 08/12/19 [Rx] cefdinir 300 mg PO BID 5 Days #10 cap 08/12/19 [Rx] prednisone 40 mg PO DAILY 5 Days #10 tab 08/12/19 [Rx]
== END 2019-08-12 13:00 | disposition home or self-care (01) | DRG 177 ==
LOC: ER 15:07 → ICU 21:31
PROVIDERS: ADMIT Internal Medicine; ATTEND Internal Medicine
DX: E11.65 Type 2 diabetes mellitus with hyperglycemia; I10 Essential (primary) hypertension; K21.9 Gastro-esophageal reflux disease without esophagitis; R07.9 Chest pain, unspecified; U07.1 COVID-19; E87.6 Hypokalemia; J12.89 Other viral pneumonia; J80 Acute respiratory distress syndrome
CPT/HCPCS: 36415; 36600; 71010; 71045; 80048; 80053; 82550; 82553; 82803; 83630; 83735; 83880; 84484; 85025; 86738; 87045; 87400; 87427; 87449; 87493; 87635; 87804; 87899; 93005; 94640; 94760; 96365; 96367; 99284; A4216; A4222; J1650; J1815; J2543; J2920; J3475; J7050; Q0177

== ENCOUNTER 2022-10-02 04:08 | Observation (INO) ==
[2022-10-02 04:28] VITALS: BMI 36.1
--- NOTE | 2022-10-02 05:12 | ED.ABDFE ---
HPI Time Seen Time Seen by Provider: 10/02/22 05:12 PCP Primary Care Physician: Jacki Johnston Complaint Doctors Chief Complaint Comments: Patient began to have pain in her epigastrium that radiates to her back 1 week ago.Patient presents today because of worsening pain. She states that her appetite is decreased,she gets nauseated and dizzy because of the pain. She states that since the abdl pain began she has had bright red blood in her stools. Patient had 6 colon polyps removed 15 yrs ago during a colonoscopy.Patient was told that the polyps were removed because they could become cancerous. Patient states that she has lost 66lbs in the past yr.Sh farhad was not trying to lose weight. Chief Complaint:: Patient stated for the last week she has felt bloated with a dull pain in her abdomen, patient stated that starting sunday she started having pain to the upper left abdomen that travles to her left flank. Patient stated that she vomitied once satuday. COVID-19 Coronavirus risk:travel/contact w/high risk person: No Has patient experienced Coronavirus symptoms: No Source History Provided: Patient Mode of arrival Mode of Arrival: Ambulatory Timing Onset of Chief Complaint: 09/30/22 PMH PMH Past Medical History: Yes Past Medical History: Asthma and Diabetes Past Medical History Comment: Fibromyalgia Past Surgical History: Yes Surgical History: Cholecystectomy and Hysterectomy Past Surgical History Comment: Tubal Ligation Family History History of Family Medical Conditions: Yes Family Medical History: Diabetes Mellitus, Cancer, [place] and Hypertension Social History Does patient currently use any type of tobacco product: No Have you used tobacco products in the last 12 months: No Type of Tobacco Use: None Do you use any recreational Drugs:: No Lives With: Spouse Lives Where: Home Travel Risk Coronavirus risk:travel/contact w/high risk person: No Has patient experienced Coronavirus symptoms: No Infectious screening In the last 2 months have you had wt loss of >10#?: NO Have you had fever, night sweats or hemotysis?: No Have you traveled outside the country in the last 6 months?: No Isolation: Standard ROS Review of Systems Constitutional: No Symptoms Reported Eyes: No Symptoms Reported ENTM: No Symptoms Reported Respiratoy: No Symptoms Reported Cardiovascular: No Symptoms Reported Gastrointestinal/Abdominal: Abdominal Pain (epigastrium) and Nausea Genitourinary: No Symptoms Reported Neurological: No Symptoms Reported Musculoskeletal: No Symptoms Reported Integumentary: No Symptoms Reported Hematologic/Lymphatic: No Symptoms Reported Endocrine: No Symptoms Reported Psychiatric: No Symptoms Reported All Other Systems: Reviewed and Negative PE Vital Signs Vitals: Vital Signs Temperature 98.8 F Pulse Rate 66 Respiratory Rate 20 Respiratory Rate 20 Blood Pressure 197/88 O2 Sat by Pulse Oximetry 99 General Limitations: No Limitations and Language Barrier General Appearance: Alert and In No Apparent Distress Head Head Exam: Normal Inspection Eyes Eye exam: Normal Appearance ENT ENT Exam: Normal Exam Neck Neck Exam: Normal Inspection Chest Chest Inspection: Normal Inspection Respiratory Respiratory Exam: Normal Lung Sounds Bilat Respiratory Exam: Bilateral: Clear to Auscultation Cardiovascular Cardiovascular Exam: Regular Rate and Normal Rhythm Abdominal Exam Abdominal Exam: Normal Inspection, Tenderness (epigastrium/greatest pain in LUQ to palpation) and Hypoactive Bowel Sounds Rectal Rectal Exam: Deferred Back Back Exam: Normal Inspection Extremeties Extremities Exam: Normal Inspection Neurologic Neurological Exam: Alert and Oriented X3 Psychiatric Psychiatric Exam: Normal Affect and Normal Mood Skin Skin Exam: Warm, Dry and Intact MDM Differential Diagnosis Differential Diagnosis- Considerations may include:: Bowel Obstruction, Diverticular disease, Ischemic Bowel and Other (comments) Other differential diagnosis: Malignancy,bowel perforation COURSE Treatment Treatment: Patient was examined and labs and abd/pelvis ct w/ contrast was ordered.Patient was given morphine 2mg iv and zofran 4mg iv for pain and nausea.Patient was also given protonix 40mg iv. Patient's abd/pelvis CT evealed: bilateral pulmonary nodules( 1yr f/u recommended),diverticulosis w/o diverticulitis, small fat containing umbilical hernia. Patient presented with severe abdl pain. She states that she has had 66lb weight loss. Discussd case with Dr Miller.He will evaluate the patient in the Ed 08:[address] Ashley who will disposition the patient. ROR Labs Reviewed 10/04/22 05:48 10/04/22 05:48 Laboratory: 10/02/22 06:20 Blood Blood Culture - Preliminary 10/02/22 06:16 Blood Blood Culture - Preliminary WBC 6.6 X10^3/uL (3.6-10.0) 10/02/22 06:16 RBC 4.85 X10^6/uL (3.5-5.4) 10/02/22 06:16 Hgb 14.5 g/dL (12.0-16.0) 10/02/22 06:16 Hct 41.3 % (36.0-47.0) 10/02/22 06:16 MCV 85.1 fL (80.0-100.0) 10/02/22 06:16 MCH 29.9 pg (27.0-34.0) 10/02/22 06:16 MCHC 35.1 g/dL (33.0-35.0) H 10/02/22 06:16 RDW 12.7 % (11.6-16.5) 10/02/22 06:16 Plt Count 186 X10^3/uL (150.0-450.0) 10/02/22 06:16 MPV 8.6 fL (7.4-11.0) 10/02/22 06:16 Neut % (Auto) 56.3 % (42.0-75.0) 10/02/22 06:16 Lymph % (Auto) 35.4 % (21.0-51.0) 10/02/22 06:16 [place] % (Auto) 6.8 % (0.0-13.0) 10/02/22 06:16 Eos % (Auto) 0.7 % (0.9-2.9) L 10/02/22 06:16 Baso % (Auto) 0.8 % (0.2-1.0) 10/02/22 06:16 Neut # (Auto) 3.7 x10^3/uL (2.2-4.8) 10/02/22 06:16 Lymph # (Auto) 2.3 X10^3/uL (1.3-2.9) 10/02/22 06:16 [place] # (Auto) 0.5 x10^3/uL (0.3-0.8) 10/02/22 06:16 Eos # (Auto) 0.0 x10^3/uL (0.0-0.2) 10/02/22 06:16 Baso # (Auto) 0.1 X10^3/uL (0.0-0.1) 10/02/22 06:16 Absolute Nucleated RBC 0.1 /100WBC 10/02/22 06:16 Sodium 137 mmol/L (136-145) 10/02/22 06:16 Corrected Sodium 141 mmol/L (136-145) 10/02/22 06:16 Potassium 3.1 mmol/L (3.5-5.1) L 10/02/22 06:16 Chloride 102 mmol/L (98-107) 10/02/22 06:16 Carbon Dioxide 26.2 mmol/L (21-32) 10/02/22 06:16 BUN 6 mg/dL (7-18) L 10/02/22 06:16 Creatinine 0.64 mg/dL (0.55-1.02) 10/02/22 06:16 Est GFR (MDRD) Af Amer > 60 (>60) 10/02/22 06:16 Est GFR (MDRD) Non-Af > 60 (>60) 10/02/22 06:16 Glucose 275 mg/dL (65-99) H 10/02/22 06:16 Lactic Acid 1.1 mmol/L (0.4-2.0) 10/02/22 06:16 Calcium 8.2 mg/dL (8.5-10.1) L 10/02/22 06:16 Corrected Calcium TNP 10/02/22 06:16 Magnesium 1.8 mg/dL (2.0-2.9) L 10/02/22 06:16 Total Bilirubin 0.50 mg/dL (0.2-1.0) 10/02/22 06:16 AST 21 Units/L (15-37) 10/02/22 06:16 ALT 23 Units/L (12-78) 10/02/22 06:16 Alkaline Phosphatase 92 Units/L (46-116) 10/02/22 06:16 C-Reactive Protein 3.90 mg/L (0-3.0) H 10/02/22 06:16 Total Protein 6.7 g/dL (6.4-8.2) 10/02/22 06:16 Albumin 3.8 g/dL (3.4-5.0) 10/02/22 06:16 Globulin 2.9 g/dL (2.5-4.5) 10/02/22 06:16 Albumin/Globulin Ratio 1.3 Ratio (1.1-2.1) 10/02/22 06:16 Amylase 41 Units/L (25-115) 10/02/22 06:16 Lipase 80 Units/L (73-393) 10/02/22 06:16 Opioid Opioid Risk Tool Age (Yevgeniy box if 16-45): No History of Preadolescent Sexual Abuse: No Total: 0 Total Score Risk Category: Low Risk Copyright: Delta KHANNA predicting aberrant behaviors Discharge Plan Diagnosis Discharge Problem: Abdominal pain Discharge Plan Patient Disposition: ADMITTED INPATIENT Condition: Stable Orders to Discharge Patient Discharge Orders: Discharge (Routine); Ordered 10/04/22 Ordered By: VAIBHAV CAREY
[2022-10-02] MEDS ORDERED: MORPHINE SULFATE INJ 2 MG INJ IVP ONE (05:56)
[2022-10-02] MEDS ORDERED: ZOFRAN INJ 4 MG VIAL IVP ONE (05:56)
[2022-10-02] MEDS ORDERED: PROTONIX INJ 40 MG VIAL IVP ONE (06:00)
[2022-10-02] MEDS ORDERED: ZOFRAN INJ 4 MG VIAL ONE ×2 (06:04→10:44)
[2022-10-02] MEDS ORDERED: MORPHINE SULFATE INJ 2 MG INJ ONE ×2 (06:04→10:43)
[2022-10-02] MEDS ORDERED: PROTONIX INJ 40 MG VIAL ONE (06:04)
[2022-10-02] MEDS ORDERED: OMNIPAQUE 350 mg/mL 100 mL BTL 100 ML ONE (06:07)
[2022-10-02 06:37] LABS: BASOPHILS # (AUTO) 0.1 X10^3/uL (0.0-0.1); BASOPHILS % (AUTO) 0.8 % (0.2-1.0); EOSINOPHILS % (AUTO) 0.7 % (0.9-2.9); HEMATOCRIT 41.3 % (36.0-47.0); HEMOGLOBIN 14.5 g/dL (12.0-16.0); LYMPHOCYTES # (AUTO) 2.3 X10^3/uL (1.3-2.9); LYMPHOCYTES % (AUTO) 35.4 % (21.0-51.0); MEAN CORPUSCULAR HEMOGLOBIN 29.9 pg (27.0-34.0); MEAN CORPUSCULAR HGB CONC 35.1 g/dL (33.0-35.0); MEAN CORPUSCULAR VOLUME 85.1 fL (80.0-100.0); MEAN PLATELET VOLUME 8.6 fL (7.4-11.0); MONOCYTES # (AUTO) 0.5 x10^3/uL (0.3-0.8); MONOCYTES % (AUTO) 6.8 % (0.0-13.0); NEUTROPHILS # (AUTO) 3.7 x10^3/uL (2.2-4.8); NEUTROPHILS % (AUTO) 56.3 % (42.0-75.0); PLATELET COUNT 186 X10^3/uL (150.0-450.0); RED BLOOD COUNT 4.85 X10^6/uL (3.5-5.4); RED CELL DISTRIBUTION WIDTH 12.7 % (11.6-16.5); WHITE BLOOD COUNT 6.6 X10^3/uL (3.6-10.0)
[2022-10-02 06:45] LABS: LACTIC ACID 1.1 mmol/L (0.4-2.0)
[2022-10-02 06:49] LABS: ALANINE AMINOTRANSFERASE 23 Units/L (12-78); ALBUMIN 3.8 g/dL (3.4-5.0); ALKALINE PHOSPHATASE 92 Units/L (46-116); AMYLASE 41 Units/L (25-115); ASPARTATE AMINO TRANSFERASE 21 Units/L (15-37); BLOOD UREA NITROGEN 6 mg/dL (7-18); CALCIUM 8.2 mg/dL (8.5-10.1); CARBON DIOXIDE 26.2 mmol/L (21-32); CHLORIDE 102 mmol/L (98-107); COR NA(FOR HYPERGLY) 141 mmol/L (136-145); CREATININE 0.64 mg/dL (0.55-1.02); GLUCOSE 275 mg/dL (65-99); LIPASE 80 Units/L (73-393); POTASSIUM 3.1 mmol/L (3.5-5.1); SODIUM 137 mmol/L (136-145); TOTAL PROTEIN 6.7 g/dL (6.4-8.2); eGFR NON BLACK RACES > 60 (>60)
--- NOTE | 2022-10-02 07:32 | CT ---
HISTORYLUQ PainSTUDYABDOMEN/PELVIS WITH CONCOMPARISONNone.TECHNIQUEMultiple axial images of the abdomen and pelvis were obtained from the lung bases to the upper thighs after the administration of IV contrast. Dose reduction techniques including Automated Exposure Control (AEC) and adjustment of mA and kV were utilized.FINDINGSThere are few less than 6 mm pulmonary nodules in the lung bases such as in the right lower lobe measuring 5 x 3 mm image 1 series 3 and the left lower lobe measuring 3 x 2 mm image 10 series 3. The heart is normal in size. Trace pericardial fluid. Status post cholecystectomy. There is a cyst in the right posterior balaji liver measuring 4 x 2.9 cm image 23 series 3. The spleen, pancreas, and adrenal glands have a benign appearance. The common duct measures 1 cm AP image 25 series 3, likely due to post cholecystectomy ductal ectasia. The kidneys appear benign without suspicious mass, calculus, or hydronephrosis. The urinary bladder appears benign. Status post hysterectomy. Diverticulosis of the colon without evidence of diverticulitis. The appendix appears normal. Negative for bowel obstruction. Mildly atherosclerotic normal caliber abdominal aorta. The portal vein is patent. Small fat containing umbilical hernia. Moderate to severe degenerative disc disease at L5-S1.IMPRESSIONFew less than 6 mm pulmonary nodules in the lung bases can be followed up in 1 year patient is high risk. Patient has known malignancy then sooner imaging may be warranted.Diverticulosis of the colon without evidence of diverticulitis.Small fat containing umbilical herniaElectronically signed by: Rakesh Murdock (Oct 02, 2022 07:29:42)
[2022-10-02] MEDS ORDERED: DILAUDID INJ IVP PRN ×2 (09:02→09:47)
[2022-10-02] MEDS ORDERED: D5 1/2 NS 1,000 ML 1,000 ML IV ONE (09:27)
--- NOTE | 2022-10-02 09:36 | ED.ABDFE ---
HPI Time Seen Time Seen by Provider: 10/02/22 05:12 PCP Primary Care Physician: Jacki Johnston Complaint Chief Complaint:: Patient stated for the last week she has felt bloated with a dull pain in her abdomen, patient stated that starting sunday she started having pain to the upper left abdomen that travles to her left flank. Patient stated that she vomitied once satuday. COVID-19 Coronavirus risk:travel/contact w/high risk person: No Has patient experienced Coronavirus symptoms: No Source History Provided: Patient Mode of arrival Mode of Arrival: Ambulatory Timing Onset of Chief Complaint: 09/30/22 PMH PMH Past Medical History: Yes Past Medical History: Asthma and Diabetes Past Medical History Comment: Fibromyalgia Past Surgical History: Yes Surgical History: Cholecystectomy and Hysterectomy Past Surgical History Comment: Tubal Ligation Family History History of Family Medical Conditions: Yes Family Medical History: Diabetes Mellitus, Cancer, VT and Hypertension Social History Does patient currently use any type of tobacco product: No Have you used tobacco products in the last 12 months: No Type of Tobacco Use: None Do you use any recreational Drugs:: No Lives With: Spouse Lives Where: Home Travel Risk Coronavirus risk:travel/contact w/high risk person: No Has patient experienced Coronavirus symptoms: No Infectious screening In the last 2 months have you had wt loss of >10#?: NO Have you had fever, night sweats or hemotysis?: No Have you traveled outside the country in the last 6 months?: No Isolation: Standard PE Vital Signs Vitals: Vital Signs Temperature 98.8 F Temperature 98.8 F Pulse Rate 61 Pulse Rate 66 Respiratory Rate 16 Respiratory Rate 16 Respiratory Rate 20 Respiratory Rate 20 Blood Pressure 196/84 Blood Pressure 197/88 O2 Sat by Pulse Oximetry 100 O2 Sat by Pulse Oximetry 99 ROR Labs Reviewed 10/02/22 06:16 10/02/22 06:16 Laboratory: WBC 6.6 X10^3/uL (3.6-10.0) 10/02/22 06:16 RBC 4.85 X10^6/uL (3.5-5.4) 10/02/22 06:16 Hgb 14.5 g/dL (12.0-16.0) 10/02/22 06:16 Hct 41.3 % (36.0-47.0) 10/02/22 06:16 MCV 85.1 fL (80.0-100.0) 10/02/22 06:16 MCH 29.9 pg (27.0-34.0) 10/02/22 06:16 MCHC 35.1 g/dL (33.0-35.0) H 10/02/22 06:16 RDW 12.7 % (11.6-16.5) 10/02/22 06:16 Plt Count 186 X10^3/uL (150.0-450.0) 10/02/22 06:16 MPV 8.6 fL (7.4-11.0) 10/02/22 06:16 Neut % (Auto) 56.3 % (42.0-75.0) 10/02/22 06:16 Lymph % (Auto) 35.4 % (21.0-51.0) 10/02/22 06:16 [place] % (Auto) 6.8 % (0.0-13.0) 10/02/22 06:16 Eos % (Auto) 0.7 % (0.9-2.9) L 10/02/22 06:16 Baso % (Auto) 0.8 % (0.2-1.0) 10/02/22 06:16 Neut # (Auto) 3.7 x10^3/uL (2.2-4.8) 10/02/22 06:16 Lymph # (Auto) 2.3 X10^3/uL (1.3-2.9) 10/02/22 06:16 [place] # (Auto) 0.5 x10^3/uL (0.3-0.8) 10/02/22 06:16 Eos # (Auto) 0.0 x10^3/uL (0.0-0.2) 10/02/22 06:16 Baso # (Auto) 0.1 X10^3/uL (0.0-0.1) 10/02/22 06:16 Absolute Nucleated RBC 0.1 /100WBC 10/02/22 06:16 Sodium 137 mmol/L (136-145) 10/02/22 06:16 Corrected Sodium 141 mmol/L (136-145) 10/02/22 06:16 Potassium 3.1 mmol/L (3.5-5.1) L 10/02/22 06:16 Chloride 102 mmol/L (98-107) 10/02/22 06:16 Carbon Dioxide 26.2 mmol/L (21-32) 10/02/22 06:16 BUN 6 mg/dL (7-18) L 10/02/22 06:16 Creatinine 0.64 mg/dL (0.55-1.02) 10/02/22 06:16 Est GFR (MDRD) Af Amer > 60 (>60) 10/02/22 06:16 Est GFR (MDRD) Non-Af > 60 (>60) 10/02/22 06:16 Glucose 275 mg/dL (65-99) H 10/02/22 06:16 Lactic Acid 1.1 mmol/L (0.4-2.0) 10/02/22 06:16 Calcium 8.2 mg/dL (8.5-10.1) L 10/02/22 06:16 Corrected Calcium TNP 10/02/22 06:16 Total Bilirubin 0.50 mg/dL (0.2-1.0) 10/02/22 06:16 AST 21 Units/L (15-37) 10/02/22 06:16 ALT 23 Units/L (12-78) 10/02/22 06:16 Alkaline Phosphatase 92 Units/L (46-116) 10/02/22 06:16 C-Reactive Protein 3.90 mg/L (0-3.0) H 10/02/22 06:16 Total Protein 6.7 g/dL (6.4-8.2) 10/02/22 06:16 Albumin 3.8 g/dL (3.4-5.0) 10/02/22 06:16 Globulin 2.9 g/dL (2.5-4.5) 10/02/22 06:16 Albumin/Globulin Ratio 1.3 Ratio (1.1-2.1) 10/02/22 06:16 Amylase 41 Units/L (25-115) 10/02/22 06:16 Lipase 80 Units/L (73-393) 10/02/22 06:16 Opioid Opioid Risk Tool Age (Yevgeniy box if 16-45): No History of Preadolescent Sexual Abuse: No Total: 0 Total Score Risk Category: Low Risk Copyright: Delta KHANNA predicting aberrant behaviors Discharge Plan Discharge Plan Patient Disposition: HOME, SELF-CARE Condition: Stable Prescriptions: No Action metformin 500 mg Tablet 500 mg PO Q12H potassium chloride 10 mEq Tablet Extended Release 10 meq PO BID PRN (Reason: TAKE WHEN TAKING LASIX) amlodipine [Norvasc] 5 mg Tablet 5 mg PO DAILY dimenhydrinate 50 mg Tablet 50 mg PO PRN PRN glipizide 2.5 mg Tablet Extended Release 24hr 2.5 mg PO DAILY furosemide [Lasix] 20 mg Tablet 20 mg PO BID PRN celecoxib [Celebrex] 100 mg Capsule 100 mg PO BID loratadine 10 mg Tablet 10 mg PO DAILY albuterol sulfate 90 mcg/actuation HFA aerosol inhaler 2 puff IN Q6H PRN (Reason: shortness of breath or wheezing) Qty: 6.7 1RF Health Concerns: Post Hospitalization: new medications and changes needed to prevent readmission or further decline. Pt educated and given instructions on all concerns. Plan of Treatment: Continue with present treatment and follow up plan. Pt is to keep follow up appointment as instructed and take medications as ordered. Orders to Discharge Patient Discharge Orders: Transfer (Routine); Ordered 10/02/22 Ordered By: REAL AG Follow ups/Referrals Follow ups/Referrals: AVA JOHNSTON [Primary Care Provider] - 3 days Instructions Stand Alone Forms: Post Hospital Follow Up Care
[2022-10-02] MEDS ORDERED: ZOFRAN INJ 4 MG VIAL IVP PRN (09:47)
[2022-10-02] MEDS: PROTONIX INJ 40 MG VIAL IVP SCH ×2 (09:49→20:51)
[2022-10-02] MEDS ORDERED: D5 1/2 NS 1,000 ML 1,000 ML IV SCH ×2 (10:00)
[2022-10-02] MEDS ORDERED: MORPHINE SULFATE INJ 2 MG INJ IVP PRN (10:40)
[2022-10-02] MEDS: ZOFRAN INJ 4 MG VIAL IVP PRN ×3 (10:48→23:30)
[2022-10-02] MEDS ORDERED: APRESOLINE INJ 20 MG VIAL ONE (11:00)
[2022-10-02] MEDS: APRESOLINE INJ 20 MG VIAL IVP PRN (11:05)
[2022-10-02] MEDS ORDERED: PROVENTIL NEB TX 0.083% 2.5MG/ 3ML NEB PRN (12:35)
[2022-10-02] MEDS: D5 1/2 NS + KCL 20 MEQ/L 1,000 ML IV SCH ×2 (13:26→20:52)
[2022-10-02] MEDS ORDERED: CONSULT PHARMACY - POTASSIUM & MAGNESIUM XX SCH (17:00)
[2022-10-02 20:04] LABS: BILIRUBIN,URINE NEGATIVE (NEGATIVE); BLOOD/HEMOGLOBIN,URINE NEGATIVE (NEGATIVE); GLUCOSE, URINE 4+ (NEGATIVE); KETONES,URINE 4+ (NEGATIVE); LEUKOCYTE ESTERASE ,URINE 1+ (NEGATIVE); NITRITES,URINE NEGATIVE (NEGATIVE); PROTEIN,URINE 2+ (NEGATIVE); UROBILINOGEN,URINE NORMAL (NORMAL)
[2022-10-02 20:12] LABS: APPEARANCE,URINE CLEAR (CLEAR); COLOR,URINE YELLOW (YELLOW)
[2022-10-02 20:13] LABS: BACTERIA,URINE TRACE /HPF (NEGATIVE); RBC,URINE 0-2 /HPF (0-3); SQUAMOUS EPITHELIAL CELL,UR FEW /HPF (NEGATIVE)
[2022-10-02] MEDS: SNACK - Diabetic Appropriate PO SCH (20:52)
[2022-10-02] MEDS: NovoLIN R (or HumuLIN R) SUBCUT PRN (20:59)
[2022-10-02] MEDS ORDERED: PROTONIX INJ 40 MG VIAL IVP SCH (21:00)
[2022-10-03] MEDS: APRESOLINE INJ 20 MG VIAL IVP PRN (01:17)
[2022-10-03] MEDS: D5 1/2 NS + KCL 20 MEQ/L 1,000 ML IV SCH ×4 (04:00→21:09)
[2022-10-03] MEDS: ZOFRAN INJ 4 MG VIAL IVP PRN (05:30)
[2022-10-03 05:31] LABS: BASOPHILS % (AUTO) 0.2 % (0.2-1.0); HEMATOCRIT 42.7 % (36.0-47.0); HEMOGLOBIN 14.9 g/dL (12.0-16.0); LYMPHOCYTES # (AUTO) 1.1 X10^3/uL (1.3-2.9); LYMPHOCYTES % (AUTO) 10.8 % (21.0-51.0); MEAN CORPUSCULAR HEMOGLOBIN 29.7 pg (27.0-34.0); MEAN CORPUSCULAR HGB CONC 34.9 g/dL (33.0-35.0); MEAN CORPUSCULAR VOLUME 85.2 fL (80.0-100.0); MEAN PLATELET VOLUME 8.7 fL (7.4-11.0); MONOCYTES # (AUTO) 0.5 x10^3/uL (0.3-0.8); MONOCYTES % (AUTO) 4.7 % (0.0-13.0); NEUTROPHILS # (AUTO) 8.9 x10^3/uL (2.2-4.8); NEUTROPHILS % (AUTO) 84.3 % (42.0-75.0); PLATELET COUNT 211 X10^3/uL (150.0-450.0); RED BLOOD COUNT 5.02 X10^6/uL (3.5-5.4); RED CELL DISTRIBUTION WIDTH 13.2 % (11.6-16.5); WHITE BLOOD COUNT 10.6 X10^3/uL (3.6-10.0)
[2022-10-03 05:46] LABS: ALANINE AMINOTRANSFERASE 24 Units/L (12-78); ALBUMIN 3.8 g/dL (3.4-5.0); ALKALINE PHOSPHATASE 92 Units/L (46-116); AMYLASE 37 Units/L (25-115); ASPARTATE AMINO TRANSFERASE 20 Units/L (15-37); BLOOD UREA NITROGEN 7 mg/dL (7-18); CALCIUM 8.7 mg/dL (8.5-10.1); CARBON DIOXIDE 22.1 mmol/L (21-32); CHLORIDE 100 mmol/L (98-107); COR NA(FOR HYPERGLY) 141 mmol/L (136-145); CREATININE 0.55 mg/dL (0.55-1.02); GLUCOSE 290 mg/dL (65-99); LIPASE 77 Units/L (73-393); MAGNESIUM 1.8 mg/dL (2.0-2.9); POTASSIUM 3.5 mmol/L (3.5-5.1); SODIUM 136 mmol/L (136-145); TOTAL PROTEIN 6.8 g/dL (6.4-8.2); eGFR NON BLACK RACES > 60 (>60)
[2022-10-03] MEDS: NovoLIN R (or HumuLIN R) SUBCUT PRN ×4 (06:06→21:42)
[2022-10-03] MEDS ORDERED: ZOFRAN INJ 4 MG VIAL IVP PRN (07:45)
[2022-10-03] MEDS: COMPAZINE INJ IVP PRN ×2 (07:55→15:25)
--- NOTE | 2022-10-03 08:19 | DR.PROGNOT ---
HOSPITAL PROGRESS NOTE Progress Note for Day of: Progress Note Date: 10/03/22 Chief Complaint Chief Complaint: c/o nausea and vomiting bile .. having epigastric pain . normal LFT and Lytes . slight elevated WBC . afebrile . Past Medical Family Social History Allergies: Allergies ciprofloxacin [From Cipro] Allergy (Verified 10/02/22 04:29) codeine Allergy (Verified 10/02/22 04:29) diphenhydramine [From Benadryl] Allergy (Verified 10/02/22 04:29) lisinopril Allergy (Verified 10/02/22 11:12) promethazine [From Phenergan] Allergy (Verified 10/02/22 04:29) tetanus and diphtheria toxoids Allergy (Verified 10/02/22 04:29) Vital Signs Vital Signs: Vital Signs Temperature 97.8 F Pulse Rate [Left] 88 Respiratory Rate 20 Blood Pressure [Right Arm] 151/73 Blood Pressure [Right Arm] 190/100 Blood Pressure [Right Arm] 179/88 O2 Sat by Pulse Oximetry 97 Physical Exam Oriented: Normal Respiratory: Normal Cardiovascular: Normal GI:Palpation: Other (soft, full abdomen with diffuse tenderness .. BS+) Speech Pattern: Clear and Appropriate Laboratory and Diagnostics 10/03/22 05:00 10/03/22 05:00 Labs: Laboratory WBC 10.6 X10^3/uL (3.6-10.0) H 10/03/22 05:00 RBC 5.02 X10^6/uL (3.5-5.4) 10/03/22 05:00 Hgb 14.9 g/dL (12.0-16.0) 10/03/22 05:00 Hct 42.7 % (36.0-47.0) 10/03/22 05:00 MCV 85.2 fL (80.0-100.0) 10/03/22 05:00 MCH 29.7 pg (27.0-34.0) 10/03/22 05:00 MCHC 34.9 g/dL (33.0-35.0) 10/03/22 05:00 RDW 13.2 % (11.6-16.5) 10/03/22 05:00 Plt Count 211 X10^3/uL (150.0-450.0) 10/03/22 05:00 MPV 8.7 fL (7.4-11.0) 10/03/22 05:00 Neut % (Auto) 84.3 % (42.0-75.0) H 10/03/22 05:00 Lymph % (Auto) 10.8 % (21.0-51.0) L 10/03/22 05:00 [place] % (Auto) 4.7 % (0.0-13.0) 10/03/22 05:00 Eos % (Auto) 0.0 % (0.9-2.9) L 10/03/22 05:00 Baso % (Auto) 0.2 % (0.2-1.0) 10/03/22 05:00 Neut # (Auto) 8.9 x10^3/uL (2.2-4.8) H 10/03/22 05:00 Lymph # (Auto) 1.1 X10^3/uL (1.3-2.9) L 10/03/22 05:00 [place] # (Auto) 0.5 x10^3/uL (0.3-0.8) 10/03/22 05:00 Eos # (Auto) 0.0 x10^3/uL (0.0-0.2) 10/03/22 05:00 Baso # (Auto) 0.0 X10^3/uL (0.0-0.1) 10/03/22 05:00 Absolute Nucleated RBC 0.1 /100WBC 10/03/22 05:00 Sodium 136 mmol/L (136-145) 10/03/22 05:00 Corrected Sodium 141 mmol/L (136-145) 10/03/22 05:00 Potassium 3.5 mmol/L (3.5-5.1) 10/03/22 05:00 Chloride 100 mmol/L (98-107) 10/03/22 05:00 Carbon Dioxide 22.1 mmol/L (21-32) 10/03/22 05:00 BUN 7 mg/dL (7-18) 10/03/22 05:00 Creatinine 0.55 mg/dL (0.55-1.02) 10/03/22 05:00 Est GFR (MDRD) Af Amer > 60 (>60) 10/03/22 05:00 Est GFR (MDRD) Non-Af > 60 (>60) 10/03/22 05:00 Glucose 290 mg/dL (65-99) H 10/03/22 05:00 POC Glucose (mg/dL) 283 mg/dL (65-99) H 10/03/22 05:24 Lactic Acid 1.1 mmol/L (0.4-2.0) 10/02/22 06:16 Calcium 8.7 mg/dL (8.5-10.1) 10/03/22 05:00 Corrected Calcium TNP 10/03/22 05:00 Magnesium 1.8 mg/dL (2.0-2.9) L 10/03/22 05:00 Total Bilirubin 0.80 mg/dL (0.2-1.0) 10/03/22 05:00 AST 20 Units/L (15-37) 10/03/22 05:00 ALT 24 Units/L (12-78) 10/03/22 05:00 Alkaline Phosphatase 92 Units/L (46-116) 10/03/22 05:00 C-Reactive Protein 3.90 mg/L (0-3.0) H 10/02/22 06:16 Total Protein 6.8 g/dL (6.4-8.2) 10/03/22 05:00 Albumin 3.8 g/dL (3.4-5.0) 10/03/22 05:00 Globulin 3.0 g/dL (2.5-4.5) 10/03/22 05:00 Albumin/Globulin Ratio 1.3 Ratio (1.1-2.1) 10/03/22 05:00 Amylase 37 Units/L (25-115) 10/03/22 05:00 Lipase 77 Units/L (73-393) 10/03/22 05:00 Specimen Type Clean catch urine 10/02/22 19:45 Urine Color Yellow (YELLOW) 10/02/22 19:45 Urine Appearance Clear (CLEAR) 10/02/22 19:45 Urine pH 6.0 (5.0 - 8.0) 10/02/22 19:45 Ur Specific [place] 1.015 (1.000-1.030) 10/02/22 19:45 Urine Protein 2+ (NEGATIVE) 10/02/22 19:45 Urine Glucose (UA) 4+ (NEGATIVE) 10/02/22 19:45 Urine Ketones 4+ (NEGATIVE) 10/02/22 19:45 Urine Blood Negative (NEGATIVE) 10/02/22 19:45 Urine Nitrite Negative (NEGATIVE) 10/02/22 19:45 Urine Bilirubin Negative (NEGATIVE) 10/02/22 19:45 Urine Urobilinogen Normal (NORMAL) 10/02/22 19:45 Ur Leukocyte Esterase 1+ (NEGATIVE) 10/02/22 19:45 Urine RBC 0-2 /HPF (0-3) 10/02/22 19:45 Urine WBC 0-2 /HPF (0-5) 10/02/22 19:45 Ur Squamous Epith Cells Few /HPF (NEGATIVE) 10/02/22 19:45 Urine Bacteria Trace /HPF (NEGATIVE) 10/02/22 19:45 Ur Culture Indicated? No/not indicated 10/02/22 19:45 Assessment and Plan 1: small bowel obstruction . adhesions . R/O gastritis , PUD . for KUB this am , if normal will do EGD ..
[2022-10-03] MEDS: PROTONIX INJ 40 MG VIAL IVP SCH ×2 (09:00→21:05)
--- NOTE | 2022-10-03 11:29 | RAD ---
HISTORYSBOSTUDYKUBCOMPARISONCT abdomen October 02, 2022FINDINGSKUB available is technically limited by motion artifact and obscuring metallic clothing artifact.What is seen of the intestinal gas pattern is unremarkable. Some degree of dilatation cannot be excluded on this suboptimal exam. Surgical clips right upper quadrant.IMPRESSIONNo definite obstruction, see above. A repeat exam is recommended.Electronically signed by: PAPA ANDRES (Oct 03, 2022 11:26:47)
[2022-10-03] MEDS ORDERED: DIPRIVAN VIAL 20 ML ONE (12:26)
[2022-10-03] MEDS ORDERED: ZOFRAN INJ 4 MG VIAL ONE (12:28)
[2022-10-03] MEDS ORDERED: NS 500 ML IV 500 ML IV ONE (12:29)
[2022-10-03] MEDS: SNACK - Diabetic Appropriate PO SCH (21:09)
[2022-10-04] MEDS: D5 1/2 NS + KCL 20 MEQ/L 1,000 ML IV SCH (04:41)
--- NOTE | 2022-10-04 05:17 | RAD ---
HISTORYR/O SBO, ABDOMINAL PAIN Relevant Clinical [id number]/22/2023 .br.br.br.br gas pattern. There is a mild amount of fecal material throughout the colon. Surgical clips right upper quadrant. Is no pathological soft tissue mass or calcification can be observed. The bony structures are grossly intact. Lung bases are clear.IMPRESSIONNo evidence for acute abdominal pathology identified.Electronically signed by: Ntae Schaefer (Oct 04, 2022 05:16:12)
[2022-10-04 06:23] LABS: BASOPHILS # (AUTO) 0.1 X10^3/uL (0.0-0.1); BASOPHILS % (AUTO) 0.5 % (0.2-1.0); EOSINOPHILS % (AUTO) 0.1 % (0.9-2.9); HEMATOCRIT 40.2 % (36.0-47.0); HEMOGLOBIN 13.8 g/dL (12.0-16.0); LYMPHOCYTES # (AUTO) 1.8 X10^3/uL (1.3-2.9); MEAN CORPUSCULAR HEMOGLOBIN 29.6 pg (27.0-34.0); MEAN CORPUSCULAR HGB CONC 34.4 g/dL (33.0-35.0); MEAN CORPUSCULAR VOLUME 86.1 fL (80.0-100.0); MEAN PLATELET VOLUME 8.4 fL (7.4-11.0); MONOCYTES # (AUTO) 0.8 x10^3/uL (0.3-0.8); MONOCYTES % (AUTO) 6.3 % (0.0-13.0); NEUTROPHILS # (AUTO) 10.5 x10^3/uL (2.2-4.8); NEUTROPHILS % (AUTO) 79.1 % (42.0-75.0); PLATELET COUNT 202 X10^3/uL (150.0-450.0); RED BLOOD COUNT 4.67 X10^6/uL (3.5-5.4); WHITE BLOOD COUNT 13.2 X10^3/uL (3.6-10.0)
[2022-10-04 06:49] LABS: ALANINE AMINOTRANSFERASE 19 Units/L (12-78); ALBUMIN 3.6 g/dL (3.4-5.0); ALKALINE PHOSPHATASE 84 Units/L (46-116); ASPARTATE AMINO TRANSFERASE 18 Units/L (15-37); BLOOD UREA NITROGEN 8 mg/dL (7-18); CALCIUM 8.5 mg/dL (8.5-10.1); CHLORIDE 101 mmol/L (98-107); COR NA(FOR HYPERGLY) 140 mmol/L (136-145); CREATININE 0.59 mg/dL (0.55-1.02); GLUCOSE 276 mg/dL (65-99); POTASSIUM 3.4 mmol/L (3.5-5.1); SODIUM 136 mmol/L (136-145); TOTAL PROTEIN 6.7 g/dL (6.4-8.2); eGFR NON BLACK RACES > 60 (>60)
[2022-10-04] MEDS ORDERED: CONSULT PHARMACY - POTASSIUM & MAGNESIUM XX SCH (08:00)
[2022-10-04] MEDS: PROTONIX INJ 40 MG VIAL IVP SCH (08:42)
[2022-10-04 08:53] VITALS: RESP 18
[2022-10-04] MEDS ORDERED: K-DUR TAB 20 MEQ PO NR (09:00)
[2022-10-04] MEDS: NovoLIN R (or HumuLIN R) SUBCUT PRN (11:40)
[2022-10-04 12:33] VITALS: BP 161/75; PULSE 82; TEMP 97.8; O2SAT 94
== END 2022-10-04 11:30 | disposition home or self-care (01) ==
LOC: U 04:13 → MED/SURG 04:13 → ER 04:13 → U 09:46
PROVIDERS: ADMIT Surgery; ATTEND Surgery